=== PATIENT | female | born 1955 | race Caucasian/White ===

== ENCOUNTER 2017-06-29 11:40 | Day surgery (SDC) | payer BC ==
[2017-06-29 14:02] VITALS: TEMP 98.8
[2017-06-29] MEDS ORDERED: Sodium Chloride 0.9% 20 ML ONE (14:08)
[2017-06-29 16:48] VITALS: BP 125/61
== END 2017-06-29 16:49 | disposition home or self-care (01) ==
LOC: ONC/OP 11:40
PROVIDERS: ATTEND Internal Medicine Gastroenterology
PROC: 30233N1 Transfusion of Nonautologous Red Blood Cells into Peripheral Vein, Percutaneous Approach (ICD-10-PCS; principal; 2017-06-29)
DX: D50.0 Iron deficiency anemia secondary to blood loss (chronic) (principal); Z98.890 Other specified postprocedural states
CPT/HCPCS: 36415; 36430; 86850; 86900; 86901; A4216; P9016

== ENCOUNTER 2017-07-02 12:48 | Day surgery (SDC) | payer BC ==
[2017-06-29 17:02] VITALS: BMI 27.7
[2017-07-02 13:40] LABS: #Eosinphils 0.2 thou/uL (0.0-0.7); #Lymphocytes 1.4 thou/uL (1.20-3.40); #Monocytes 0.6 thou/uL (0.11-0.59); #Neutrophils 3.9 thou/uL (1.40-6.50); %Basophils 0.5 % (0.0-1.0); %Eosinophils 3.6 % (0.0-10.0); %Lymphocytes 23.1 % (21.0-51.0); %Neutrophils 63.8 % (42.0-75.0); Hemoglobin 7.9 g/dL (12.0-16.0); Mean Corpuscular HGB CONC 31.1 g/dL (32.0-36.0); Mean Corpuscular Hemoglobin 26.9 pg (27.0-31.0); Mean Corpuscular Volume 86.5 fl (81.0-99.0); Platelet Count 227 thou/uL (130-400); RBC Distribution Width 17.6 % (11.5-14.5); Red Blood Cell (RBC) Count 2.94 mill/uL (4.20-5.40); White Blood Cell (WBC) Count 6.1 thou/uL (4.8-10.8)
[2017-07-02] MEDS ORDERED: PROPOFOL 200 MG/20 ML VIAL ONE (16:53)
--- NOTE | 2017-07-03 13:51 | OP ---
DATE OF PROCEDURE: 07/02/2017 PROCEDURES: 1. Esophagogastroduodenoscopy. 2. Colonoscopy. SURGEON: Tano Hall M.D. PAIN MEDICATIONS: Given by Anesthesiology Department PREPROCEDURE DIAGNOSES: 1. Severe anemia (hemoglobin 6.8). 2. Blood in stool, Hemoccult positive. 3. History of esophageal varices. POSTPROCEDURE DIAGNOSES: 1. Grade 2 lower esophageal varices without stigmata of bleeding. 2. Mild portal gastropathy. 3. Normal colon exam. PROCEDURE IN DETAIL: A written consent was obtained prior to the procedure. After adequate sedation , the forward-viewing endoscope was advanced down the stomach under direct vision to the second porti on of duodenum. Both the second portion and the bulb appeared normal. Pulses patent. The gastric a ntrum, body, fundus, and cardia all appeared normal. Mild diffuse portal gastropathy changes were no sterling throughout the stomach lining. Retroflexion did not show any gastric varices. In the distal low er third esophagus, grade 1-2 esophageal varices were seen. There were no stigmata of bleeding. The mid and upper esophagus appeared normal. The patient was then repositioned for colon exam. The colonoscope was introduced to rectum and advan lefty to the various segments of the colon to the cecum with some difficulty. The quality of the bowel prep was good. The cecum, ascending colon, hepatic flexure, transverse colon, splenic flexure, desc ending colon, and rectosigmoid colon all appeared normal. The sigmoid colon appeared to be tortuous. Rectal vault appeared normal including retroflexion. ASSESSMENT: 1. Normal upper endoscopy except for mild portal gastropathy and grade 2 esophageal varices. 2. Normal colon exam. PLAN: 1. Resume iron supplement twice daily. 2. Followup EGD in 1 year. 3. We will monitor blood count.
== END 2017-07-02 15:52 | disposition home or self-care (01) ==
LOC: SDC 12:48
PROVIDERS: ATTEND Internal Medicine Gastroenterology
PROC: 0DJD8ZZ Inspection of Lower Intestinal Tract, Via Natural or Artificial Opening Endoscopic (ICD-10-PCS; principal; 2017-07-02)
PROC: 0DJ08ZZ Inspection of Upper Intestinal Tract, Via Natural or Artificial Opening Endoscopic (ICD-10-PCS; principal; 2017-07-02)
DX: K31.9 Disease of stomach and duodenum, unspecified; D50.9 Iron deficiency anemia, unspecified; Z79.84 Long term (current) use of oral hypoglycemic drugs; K74.60 Unspecified cirrhosis of liver; Z79.899 Other long term (current) drug therapy; Z79.82 Long term (current) use of aspirin; I85.10 Secondary esophageal varices without bleeding; R19.5 Other fecal abnormalities
CPT/HCPCS: 36415; 85025; J2704

== ENCOUNTER 2017-07-10 01:57 | Emergency (ER) | payer BC ==
[2017-07-10 02:33] LABS: #Eosinphils 0.1 thou/uL (0.0-0.7); #Lymphocytes 1.2 thou/uL (1.20-3.40); #Monocytes 0.4 thou/uL (0.11-0.59); #Neutrophils 2.8 thou/uL (1.40-6.50); %Basophils 0.9 % (0.0-1.0); %Eosinophils 3.1 % (0.0-10.0); %Lymphocytes 26.5 % (21.0-51.0); %Monocytes 8.4 % (0.0-10.0); %Neutrophils 61.2 % (42.0-75.0); Hemoglobin 6.1 g/dL (12.0-16.0); Mean Corpuscular Hemoglobin 27.6 pg (27.0-31.0); Mean Platelet Volume 7.2 fL (7.4-10.4); Platelet Count 177 thou/uL (130-400); RBC Distribution Width 17.7 % (11.5-14.5); White Blood Cell (WBC) Count 4.6 thou/uL (4.8-10.8)
[2017-07-10 02:53] LABS: ALT (SGPT) 18 U/L (8-55); AST (SGOT) 17 U/L (5-34); Albumin 3.8 g/dL (3.5-5.0); Alkaline Phosphatase 79 U/L (40-150); Anion Gap 10 mmol/L (10-20); BUN (Urea Nitrogen) 10 mg/dL (9.8-20.1); Bilirubin, Total 0.5 mg/dL (0.2-1.2); Calc. Creatinine Clearance 0 mL/min (70-130); Calcium 9.1 mg/dL (7.8-10.44); Carbon Dioxide 27 mmol/L (22-29); Chloride 103 mmol/L (98-107); Estimated GFR-MDRD 80; Globulin 2.6 g/dL (2.4-3.5); Glucose 232 mg/dL (70-105); Potassium 3.4 mmol/L (3.5-5.1); Protein, Total 6.4 g/dL (6.0-8.3); Sodium 137 mmol/L (136-145)
[2017-07-10 03:41] LABS: Iron 413 ug/dL (50-170); Iron Binding Capacity, Total 416 mcg/dL (265-497)
== END 2017-07-10 07:29 | disposition home or self-care (01) ==
LOC: ERS 01:57
DX: D64.9 Anemia, unspecified (principal); E11.9 Type 2 diabetes mellitus without complications; I10 Essential (primary) hypertension; E78.5 Hyperlipidemia, unspecified; Z79.899 Other long term (current) drug therapy; Z79.82 Long term (current) use of aspirin; Z79.84 Long term (current) use of oral hypoglycemic drugs
CPT/HCPCS: 36415; 36430; 80053; 82274; 82728; 83540; 83550; 85025; 86850; 86900; 86901; P9016

== ENCOUNTER 2017-09-07 08:53 | Outpatient (CLI) | payer BC | END 2017-09-07 08:54 | disposition home or self-care (01) | LOC: BICULT 08:53 | PROVIDERS: ATTEND Internal Medicine Gastroenterology | DX: K74.60 Unspecified cirrhosis of liver (principal); I85.00 Esophageal varices without bleeding; D50.9 Iron deficiency anemia, unspecified; R16.1 Splenomegaly, not elsewhere classified | CPT/HCPCS: 76705 ==

== ENCOUNTER 2018-03-21 17:36 | Day surgery (SDC) | payer BC ==
[2018-03-21 18:43] VITALS: BMI 27.6
[2018-03-22 01:08] VITALS: TEMP 98.3
[2018-03-22 02:50] VITALS: BP 134/70
== END 2018-03-22 04:15 | disposition home or self-care (01) ==
LOC: SDC/OP 17:36 → ONC 17:44 → SDC/OP 03-22 04:15
PROVIDERS: ATTEND Internal Medicine
PROC: 30233N1 Transfusion of Nonautologous Red Blood Cells into Peripheral Vein, Percutaneous Approach (ICD-10-PCS; principal; 2018-03-22)
DX: D64.9 Anemia, unspecified (principal); I10 Essential (primary) hypertension; E11.9 Type 2 diabetes mellitus without complications; K58.9 Irritable bowel syndrome, unspecified; Z79.899 Other long term (current) drug therapy
CPT/HCPCS: 36415; 36430; 86850; 86900; 86901; P9016

== ENCOUNTER 2018-05-29 08:45 | Outpatient (CLI) | payer BC ==
--- NOTE | 2018-05-29 10:23 | ULT ---
HEPATIC ULTRASOUND: History: Cirrhosis, fatty liver. Technique: Multiplanar grayscale and color doppler images were obtained in a right upper quadrant ult rasound. Spectral analysis of the doppler waveforms of the hepatic and splenic vasculature were perfo rmed. FINDINGS: The liver is normal in echogenicity without focal lesions or intrahepatic ductal dilatation. No signi ficant nodular contour of the liver is seen. The gallbladder is normal without stones, sludge, gallbl adder wall thickening or pericholecystic fluid. The common bile duct is normal measuring 3 mm. Normal direction of flow is seen in the hepatic and splenic vasculature which also have normal wavefo geovani. The spleen contains a few echogenic foci which may represent calcified granulomas. The spleen me asures 13.5 cm in length. Limited visualization of the pancreas is unremarkable. IMPRESSION: Unremarkable exam. POS: GIANA
== END 2018-05-29 08:46 | disposition home or self-care (01) ==
LOC: BICULT 08:45
PROVIDERS: ATTEND Internal Medicine Gastroenterology
DX: K74.60 Unspecified cirrhosis of liver (principal); K76.0 Fatty (change of) liver, not elsewhere classified
CPT/HCPCS: 76705

== ENCOUNTER 2019-08-01 09:59 | Outpatient (CLI) | payer BC ==
[2019-08-01 10:42] LABS: Estimated GFR-MDRD - POC Greater than 90
--- NOTE | 2019-08-01 11:57 | CT ---
EXAM: CT ABDOMEN AND PELVIS HISTORY: Lower abdominal pain. COMPARISON: None. Procedure: Multiple contiguous axial images were obtained and a CT of the abdomen and pelvis with IV contrast. C oronal reformats were performed. FINDINGS: Lower Chest: within normal limits. Vessels: Normal caliber aorta. There is no periaortic fat stranding. There is stranding of the centra l abdominal mesentery at the root of the celiac artery and superior mesenteric artery. Heart: Normal heart size. No pericardial fluid Abdomen: Portal vein:Patent Gallbladder: No calcified gallstones. Normal caliber wall. Liver: Mild nodularity of the hepatic margin. No enhancing masses in the liver. Pancreas: within normal limits. Spleen: Multiple calcified granulomas. Splenomegaly measuring 16.6 cm. There are prominent splenic va rices. Smaller gastric varices are also noted. Adrenals: within normal limits. Kidneys: Symmetric enhancement. No obstructive uropathy. Peritoneum: No ascites or free air, no fluid collection. Bowel: Gastric mucosa and small bowel loops have an overall normal caliber. There does appear to be m ucosal thickening involving proximal small bowel loops. Ileocecal junction has a normal appearance. Normal caliber appendix. Scattered fecal material in a nondistended, nondilated colon. Mesentery and Retroperitoneum: There are mildly enlarged periaortic and aortocaval lymph nodes. Repre sentative aortocaval lymph node measures 1.0 x 0.6 cm. There is stranding of the abdominal mesentery, predominantly at the root of the celiac artery and superior mesenteric artery. There is al so a small amount of stranding in the left and right paracolic gutter. Abdominal Wall: within normal limits. Vasculature: As stated above, there are splenic varices. There is also recanalization of the umbilica l vein. Pelvis: Reproductive Organs: Reproductive organs are unremarkable. Pelvis: No mass, lymphadenopathy, free air or free fluid. Bladder: within normal limits. Bones: within normal limits. IMPRESSION: 1. Mild cirrhotic changes of the liver. 2. Splenomegaly. 3. Portal venous hypertension with resultant splenic varices and recanalization of the umbilical vein . Early third spacing with stranding of the root of the abdominal mesentery, mesentery along the paracolic gutters and mild edematous changes of the bowel mucosa. Transcribed Date/Time: 08/01/2019 12:46 PM
== END 2019-08-01 10:00 | disposition home or self-care (01) ==
LOC: SCSCT 09:59
PROVIDERS: ATTEND Internal Medicine Gastroenterology
DX: I85.00 Esophageal varices without bleeding (principal); K74.69 Other cirrhosis of liver; R10.30 Lower abdominal pain, unspecified; R19.4 Change in bowel habit; R16.1 Splenomegaly, not elsewhere classified; K76.6 Portal hypertension; I86.8 Varicose veins of other specified sites
CPT/HCPCS: 74177; 82565

== ENCOUNTER 2020-04-23 09:30 | Observation (INO) | payer BC ==
[2020-04-23] MEDS ORDERED: Octreotide Acetate 100 MCG/ML VIAL ONE (10:04)
[2020-04-23 10:07] LABS: #Basophils 0.1 thou/uL (0.0-0.2); #Eosinphils 0.1 thou/uL (0.0-0.7); #Lymphocytes 0.9 thou/uL (1.20-3.40); #Monocytes 0.3 thou/uL (0.11-0.59); %Basophils 0.8 % (0.0-1.0); %Eosinophils 1.9 % (0.0-10.0); %Lymphocytes 13.9 % (21.0-51.0); %Monocytes 4.7 % (0.0-10.0); %Neutrophils 78.6 % (42.0-75.0); Hemoglobin 10.1 g/dL (12.0-16.0); Mean Corpuscular HGB CONC 33.4 g/dL (32.0-36.0); Mean Corpuscular Volume 83.7 fL (78.0-98.0); Mean Platelet Volume 8.1 fL (7.4-10.4); Platelet Count 172 thou/uL (130-400); RBC Distribution Width 13.1 % (11.5-14.5); Red Blood Cell (RBC) Count 3.62 mill/uL (4.20-5.40); White Blood Cell (WBC) Count 6.4 thou/uL (4.8-10.8)
[2020-04-23 10:30] LABS: ALT (SGPT) 25 U/L (8-55); AST (SGOT) 19 U/L (5-34); Albumin 3.8 g/dL (3.4-4.8); Alkaline Phosphatase 64 U/L (40-110); Anion Gap 15 mmol/L (10-20); BUN (Urea Nitrogen) 29 mg/dL (9.8-20.1); Bilirubin, Total 1.3 mg/dL (0.2-1.2); Calc. Creatinine Clearance 0 mL/min (70-130); Calcium 8.9 mg/dL (7.8-10.44); Carbon Dioxide 25 mmol/L (23-31); Chloride 104 mmol/L (98-107); Globulin 2.7 g/dL (2.4-3.5); Glucose 223 mg/dL (80-115); Potassium 4.6 mmol/L (3.5-5.1); Protein, Total 6.5 g/dL (5.8-8.1); Sodium 139 mmol/L (136-145)
[2020-04-23] MEDS ORDERED: Ondansetron PF 4 MG/2 ML Vial ONE (10:48)
[2020-04-23] MEDS ORDERED: Fentanyl 100 MCG/2 ML VIAL ONE (10:48)
--- NOTE | 2020-04-23 11:35 | CT ---
CT OF THE CHEST, ABDOMEN AND PELVIS WITH IV CONTRAST INDICATION: History of blood clot in stomach concern for active variceal bleeding COMPARISON: CT the abdomen and pelvis with contrast dated August 01, 2019 FINDINGS: CHEST: Lungs: No suspicious consolidation is evident. There is calcified granuloma in the right upper lobe. There are a few scattered nonsuspicious appearing sub-4 mm pulmonary nodules within both lungs. Pleural space: No effusion. Mediastinum: There are calcified lymph nodes within the subcarinal region of the mediastinum and in t he right hilar region. Axilla: No pathologically enlarged lymph nodes. ABDOMEN: Liver: There is a nodular contour to the liver consistent with patient's history of cirrhosis. There is scattered calcified granuloma. No focal hepatic lesion is evident. Gallbladder: Moderately distended Pancreas: Normal. Adrenal glands: Normal. Spleen: Spleen is enlarged with multiple calcified granuloma measuring 14.6 cm. View mild varicositie s are seen adjacent to the splenic hilum. Kidneys and ureters: Normal. No hydronephrosis. Vasculature: There are moderate vascular calcifications seen involving the visualized vasculature. Lymph nodes:No lymphadenopathy. Free fluid in abdomen:No free fluid is evident. PELVIS: Small and large bowel: There is a moderate amount retained stool within the colon. The small bowel is of normal caliber. The stomach is largely decompressed. No extensive paraesophageal varicosities are seen in the region of the distal esophagus. No large gastric varicosities are grossly evident. Appendix:Normal Bladder: Moderately distended Rectal and perirectal soft tissues:Normal. Reproductive structures: The uterus is not seen and presumably surgically absent. The right adnexa is seen and appears within normal limits by CT. The left adnexa is not demonstrated and presumed to be surgically absent. Free fluid in pelvis: No free fluid is evident. Lymphadenopathy pelvis: No lymphadenopathy is evident. Osseous structures: No acute osseous abnormality. No destructive osteolytic or osteoblastic lesion i s identified. There is thoracolumbar scoliosis. No acute fracture or subluxation demonstrated. No suspicious osteolytic or osteoblastic lesion is identified. Soft tissues:Normal. IMPRESSION: 1. Findings of cirrhosis with portal hypertension with mildly prominent splenic varicosities. No larg e paraesophageal or gastrohepatic varicosities are grossly evident. 2. Findings of prior granulomatous disease. 3. Other chronic findings as above.
[2020-04-23] MEDS ORDERED: Ondansetron PF 4 MG/2 ML Vial IVP PRN (13:03)
[2020-04-23] MEDS ORDERED: Ondansetron ODT 4 MG TAB PO PRN (13:03)
[2020-04-23] MEDS ORDERED: Dextrose 50% Abboject 50 ML SYRINGE SLOW IVP PRN (13:06)
[2020-04-23] MEDS ORDERED: Dextrose 5% in Water 1,000 ML IV PRN (13:06)
--- NOTE | 2020-04-23 13:10 | PDOC.HHP ---
Hospitalist RONALD Referred from GI History of Present Illness: Patient is a 64-year-old female with a history of chronic fatty liver disease which ultimately resulted in cirrhotic changes of the liver. About a year and a half ago the patient developed some early signs of varices. She was following up with Dr. Hall today for a surveillance endoscopy. On exam he found some esophageal varices. On further look he found a fair amount of blood in the stomach which was somewhat clotted. He was unable to find any specific lesions within the stomach. He was able to band the varices in the esophagus. In talking to the patient it sounds like she felt a little bit nauseated yesterday. She also felt somewhat weak. She denies any melena or hematochezia. She does have a history of iron deficiency anemia and states she was feeling somewhat like she did when she was anemic in the past. Currently denies any abdominal pain or nausea. Allergies/Adverse Reactions: Allergy/AdvReac Type Severity Reaction Status Date / Time No Known Allergies Allergy Verified 06/17/19 01:25 Home Medications: Medication Instructions Recorded Confirmed Type Aspirin [Aspirin EC] 1 tab PO DAILY 06/29/17 03/21/18 History Iron,Carbonyl/Ascorbic Acid 2 tab PO QAM 06/29/17 03/21/18 History [Vitron-C] Nadolol 1 tab PO QAM 06/29/17 03/21/18 History Pantoprazole Sodium [Protonix] 1 tab PO QAM 06/29/17 03/21/18 History Pravastatin Sodium 1 tab PO HS 06/29/17 03/21/18 History Valsartan/Hydrochlorothiazide 1 tab PO QAM 06/29/17 03/21/18 History [Valsartan-Hctz 160-25 mg Tab] glyBURIDE [Glyburide] 2 tab PO BID 06/29/17 03/21/18 History Comments: Patient also takes glyburide 5 mg p.o. daily Metformin ER 500 mg 2 p.o. twice daily Vitamin D3 5000 units daily Fish oil Multivitamin Glucosamine Vitamin E Past History: PMHx: Diabetes mellitus type 2, hypertension, hyperlipidemia, iron deficiency anemia, nonalcoholic steatohepatitis, cirrhosis PSHx: , hysterectomy with unilateral nephrectomy, back surgery FHx: Mother had hypertension, coronary disease, CHF. Father had diabetes mellitus late in life Social: Non-smoker, nondrinker, nondrug user. She is . Full code. is her surrogate. Hospitalist HPI ROS Constitutional: denies: fever, chills Respiratory: denies: cough, shortness of breath Cardiovascular: denies: chest pain, palpitations Gastrointestinal: reports: nausea. denies: vomiting, abdominal pain, diarrhea, constipation, melena, hematochezia Neurological: reports: weakness (Mild) All other systems reviewed; all pertinent +/- noted in HPI/Subj Hospitalist Exam General Appearance: NAD Neck: supple, symmetric, no JVD Heart: RRR, no gallops, no rubs, II/IV Respiratory: CTAB, no wheezes, no rales Gastrointestinal: soft, non-tender, non-distended, normal bowel sounds Extremities: no cyanosis, no clubbing, no edema Skin: normal turgor Neurological: no focal deficits Musculoskeletal: normal tone, normal strength, no muscle wasting Psychiatric: normal affect, normal behavior, A&O x 3 Hospitalist Results Result Diagrams: 04/23/20 09:50 04/23/20 09:50 Lab results: Laboratory Last Values WBC 6.4 thou/uL (4.8-10.8) 04/23/20 09:50 RBC 3.62 mill/uL (4.20-5.40) L 04/23/20 09:50 Hgb 10.1 g/dL (12.0-16.0) L 04/23/20 09:50 Hct 30.2 % (36.0-47.0) L 04/23/20 09:50 MCV 83.7 fL (78.0-98.0) 04/23/20 09:50 MCH 28.0 pg (27.0-31.0) 04/23/20 09:50 MCHC 33.4 g/dL (32.0-36.0) 04/23/20 09:50 RDW 13.1 % (11.5-14.5) 04/23/20 09:50 Plt Count 172 thou/uL (130-400) 04/23/20 09:50 MPV 8.1 fL (7.4-10.4) 04/23/20 09:50 Neutrophils % 78.6 % (42.0-75.0) H 04/23/20 09:50 Lymphocytes % 13.9 % (21.0-51.0) L 04/23/20 09:50 Monocytes % 4.7 % (0.0-10.0) 04/23/20 09:50 Eosinophils % 1.9 % (0.0-10.0) 04/23/20 09:50 Basophils % 0.8 % (0.0-1.0) 04/23/20 09:50 Neutrophils # 5.0 thou/uL (1.40-6.50) 04/23/20 09:50 Lymphocytes # 0.9 thou/uL (1.20-3.40) L 04/23/20 09:50 Monocytes # 0.3 thou/uL (0.11-0.59) 04/23/20 09:50 Eosinophils # 0.1 thou/uL (0.0-0.7) 04/23/20 09:50 Basophils # 0.1 thou/uL (0.0-0.2) 04/23/20 09:50 Sodium 139 mmol/L (136-145) 04/23/20 09:50 Potassium 4.6 mmol/L (3.5-5.1) 04/23/20 09:50 Chloride 104 mmol/L (98-107) 04/23/20 09:50 Carbon Dioxide 25 mmol/L (23-31) 04/23/20 09:50 Anion Gap 15 mmol/L (10-20) 04/23/20 09:50 BUN 29 mg/dL (9.8-20.1) H 04/23/20 09:50 Creatinine 0.64 mg/dL (0.6-1.1) 04/23/20 09:50 Estimated GFR (MDRD) Greater than 90 04/23/20 09:50 Glucose 223 mg/dL (80-115) H 04/23/20 09:50 Calcium 8.9 mg/dL (7.8-10.44) 04/23/20 09:50 Total Bilirubin 1.3 mg/dL (0.2-1.2) H 04/23/20 09:50 AST 19 U/L (5-34) 04/23/20 09:50 ALT 25 U/L (8-55) 04/23/20 09:50 Alkaline Phosphatase 64 U/L (40-110) 04/23/20 09:50 Serum Total Protein 6.5 g/dL (5.8-8.1) 04/23/20 09:50 Albumin 3.8 g/dL (3.4-4.8) 04/23/20 09:50 Globulin 2.7 g/dL (2.4-3.5) 04/23/20 09:50 Albumin/Globulin Ratio 1.4 g/dL (1.2-2.2) 04/23/20 09:50 Blood Type AB POSITIVE 04/23/20 10:09 Antibody Screen NEGATIVE 04/23/20 10:09 Crossmatch See Detail 04/23/20 10:09 CT scan - abdomen Status: image reviewed by me, report reviewed by me (Evidence of cirrhotic changes of the liver with no other acute findings) Hospitalist H&P A/P (1) GI bleed Code(s): K92.2 - GASTROINTESTINAL HEMORRHAGE, UNSPECIFIED Status: Acute (2) Esophageal varices Code(s): I85.00 - ESOPHAGEAL VARICES WITHOUT BLEEDING Status: Acute (3) Acute blood loss anemia Code(s): D62 - ACUTE POSTHEMORRHAGIC ANEMIA Status: Acute (4) Cirrhosis Code(s): K74.60 - UNSPECIFIED CIRRHOSIS OF LIVER Status: Acute (5) Fatty liver Code(s): K76.0 - FATTY (CHANGE OF) LIVER, NOT ELSEWHERE CLASSIFIED Status: Acute (6) Diabetes mellitus Code(s): E11.9 - TYPE 2 DIABETES MELLITUS WITHOUT COMPLICATIONS Status: Acute (7) Hyperlipidemia Code(s): E78.5 - HYPERLIPIDEMIA, UNSPECIFIED Status: Acute (8) Hypertension Code(s): I10 - ESSENTIAL (PRIMARY) HYPERTENSION Status: Acute (9) Iron deficiency anemia Code(s): D50.9 - IRON DEFICIENCY ANEMIA, UNSPECIFIED Status: Acute Plan: This patient is a 64-year-old female who presented on referral from the GI clinic. 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 She was noted to have varices developing about a year and a half ago. She was seen today for a maintenance endoscopy. She was noted to have blood in her stomach. There was no specific lesion accounting for this. She had varices in the esophagus that were banded. Patient has largely been asymptomatic otherwise. She had no melena or hematochezia. Only symptoms were mild nausea and mild fatigue. GI bleed: No specific source identified. In the stomach primarily. Had varices in the esophagus banded but there was no evidence of acute bleeding. Observation status with serial hemoglobin. Continue PPI. Octreotide drip. GI consult. Esophageal varices: As above close were banded today without evidence of complication. Acute blood loss anemia: Patient's hemoglobin 1 month ago was 11.9. We will continue to monitor serial hemoglobins. Patient was noted to be pancytopenic previously, this has generally improved. Cirrhosis: Secondary to nonalcoholic steatohepatitis. Diabetes mellitus: Patient is not taking much p.o. at the moment. We will hold her p.o. meds and continue with sliding scale insulin for now. If she does not need contrast study and is able to take p.o.'s adequately will need to resume her Metformin and glyburide. Continue with a diabetic diet and Accu-Cheks. Hypertension: Continue with her valsartan and HCTZ. Hyperlipidemia: Continue with her pravastatin or therapeutic substitution.
[2020-04-23 13:27] LABS: Hemoglobin 10.1 g/dL (12.0-16.0)
[2020-04-23 13:33] LABS: PTT 27.8 sec (22.9-36.1); Prothrombin Time 13.6 sec (12.0-14.7)
[2020-04-23] MEDS ORDERED: Iopamidol 370 76% 100 ML VIAL ONE (14:03)
[2020-04-23] MEDS: Sodium Chloride 0.9% 1,000 ML IV SCH (16:23)
[2020-04-23 16:48] VITALS: BMI 25.8
[2020-04-23] MEDS: cefTRIAXone\\ROCEPHIN 2 GM in Sodium Chloride 0.9% 100 ML IVPB SCH (18:35)
--- NOTE | 2020-04-23 20:02 | CON ---
DATE OF CONSULTATION: 04/23/2020 REASON FOR CONSULTATION: Cirrhosis of the liver, now status post band ligation x3 for bleeding esophageal varices, upper GI bleeding. CONSULTING PROVIDER: Jesús Meneses MD HISTORY OF PRESENT ILLNESS: The patient is a 64-year-old female with past medical history of diabetes, anemia, anxiety, hypertension, GERD, hyperlipidemia, and cirrhosis secondary to nonalcoholic fatty liver disease and complicated by esophageal varices status post band ligation. The patient states that over the last 2 days, she had been experiencing increased weakness and nausea without vomiting with unknown origin. She also experienced increased fatigue along with these other presenting symptoms with a presyncopal event earlier today. However, she subsequently underwent upper endoscopy earlier today at the [facility], during which she was noted to have a large amount of retained blood within the stomach as well as grade 2 esophageal varices with red samira sign, consistent with high-risk stigmata of bleeding. She subsequently underwent band ligation x3 and was subsequently transferred to the hospital for further monitoring and evaluation. She states that since being transferred to the hospital she does have a mild burning type sensation in her lower chest that was present this morning before the upper endoscopy, but otherwise is feeling well. She does also complain of mild dysphagia since the upper endoscopy with attempts to eat more liquid type foods "I have to allow more time to let them go down." Otherwise, she denies any vomiting, fevers, chills, hematemesis, melena, hematochezia, odynophagia, diarrhea, constipation, or recent weight loss. REVIEW OF SYSTEMS: A 10-category review of systems was obtained with all responses negative except for the pertinent positives as listed in HPI. PAST MEDICAL HISTORY: As per HPI. PAST SURGICAL HISTORY: 1. . 2. Hysterectomy. 3. Unilateral nephrectomy. 4. Back surgery. FAMILY HISTORY: Denies any GI malignancies. SOCIAL HISTORY: Denies any tobacco, alcohol, or illicit drug use. OUTPATIENT MEDICATIONS: Reviewed. ALLERGIES: NO KNOWN DRUG ALLERGIES. PHYSICAL EXAMINATION: VITAL SIGNS: Temperature 98.2, pulse 86, blood pressure 123/77, respiratory rate 16, and saturating 98% on room air. GENERAL: The patient was lying in bed, in no acute distress. Alert and oriented x4. HEENT: Normocephalic and atraumatic. Neck is supple. No JVD or scleral icterus noted. CARDIOVASCULAR: Regular rate and rhythm with no discernable murmurs, gallops, or rubs. RESPIRATORY: Clear to auscultation bilaterally with no discernable wheezes or rales. ABDOMEN: Normoactive bowel sounds. Soft and nondistended. Mild tenderness to palpation in the midepigastric region. Negative shifting dullness. EXTREMITIES: No cyanosis, clubbing, or edema. LABORATORY DATA: CBC with a white blood cell count of 6.4, hemoglobin 10.1, hematocrit 30.2, and platelets 172. INR 1.0. Chemistry with a sodium of 139, potassium 4.6, chloride 104, CO2 of 25, BUN 29, creatinine 0.64, and glucose 223. AST 19, ALT 25, alkaline phosphatase 64, and total bilirubin 1.3. IMAGING DATA: CT of the abdomen and pelvis was obtained on 04/23/2020, which showed morphology of the liver consistent with cirrhosis and portal hypertension with mildly prominent splenic varicosities; however, no large paraesophageal or gastrohepatic varicosities were grossly evident. She did have evidence of granulomatous disease within the spleen and liver. There was a moderate amount of retained stool within the colon, but otherwise normal. Lastly, she did have surgical change consistent with her hysterectomy with nonvisualization of the left adnexa, again presumed to be surgically absent. ASSESSMENT AND PLAN: The patient is a 64-year-old female with past medical history of diabetes, anemia, anxiety, hypertension, gastroesophageal reflux disease, hyperlipidemia, and cirrhosis secondary to nonalcoholic fatty liver disease and complicated by esophageal varices, now presenting with gastrointestinal bleeding, most likely from the esophageal varix source. 1. Upper GI bleeding/esophageal varices: The patient is presenting with a history of small esophageal varices in the past on prior upper endoscopy, for which the patient underwent a repeat upper endoscopy today for further surveillance. However, upon entering into the stomach, it was noted that she had a significant amount of retained blood in addition to a larger blood clot that was obscuring visualization of the gastric cardia and fundus; however, upon withdrawing the scope into the distal esophagus, she did have larger esophageal varices with red samira sign, consistent with high-risk stigmata of possible bleeding. She subsequently underwent band ligation x3 with good hemostasis achieved and ultimately transferred to the hospital for further management. At this time, the more likely explanation for her gastrointestinal bleeding would be the variceal bleeding that has now been subsequently treated with band ligation. However, with nonvisualization of the proximal stomach, an underlying abnormality could be potentially contributing to her gastrointestinal bleeding. Recommendations: a. Would start the patient on an octreotide drip and continue for the next 48 to 72 hours. b. Start the patient on PPI 40 mg IV b.i.d. in addition to ceftriaxone 2 g daily for the GI bleeding and infectious prophylaxis for GI bleeding in a patient with cirrhosis. c. Would continue to trend her hemoglobin and hematocrit and transfuse as necessary to maintain the hemoglobin and hematocrit of 7/21. d. Continue to monitor clinically for signs of active GI bleeding. e. Would start the patient on a clear liquid diet today, especially in light of her band ligation performed today with potentially advancing her diet to a soft diet tomorrow. f. If the patient has a decrease in her hemoglobin and hematocrit during this admission, she will likely need a repeat upper endoscopy for evaluation of the stomach that was not seen on endoscopy today. 2. Cirrhosis: The patient is presenting with a prior history of cirrhosis with prior workup in the past consistent with an etiology being nonalcoholic fatty liver disease, currently presenting with decompensated disease (in light of her esophageal varices) with a MELD score of 8 and Child-Hoang classification A. CT scan obtained earlier today did not show any evidence of hepatoma, which may be contributing to worsening liver disease. At this time, her liver disease seems fairly well controlled. Recommendations: a. Would avoid any potentially hepatotoxic medications in light of the patient's diagnosis of cirrhosis. b. Would continue to trend LFTs and INR daily for signs of hepatic dysfunction. c. Would continue to monitor the patient for signs of hepatic encephalopathy, which could be a harbinger of worsening liver disease. We will continue to follow. Please call with any questions. Job ID: [id number]
[2020-04-23] MEDS ORDERED: Atorvastatin Calcium 10 MG TAB PO SCH (21:00)
[2020-04-23 21:41] LABS: Hemoglobin 8.7 g/dL (12.0-16.0)
[2020-04-23] MEDS: Pantoprazole 40 MG VIAL IVP SCH (21:57)
[2020-04-23] MEDS ORDERED: Simvastatin 20 MG TAB PO SCH (22:45)
[2020-04-23] MEDS: Octreotide Acetate 1,250 MCG in Sodium Chloride 0.9% 250 ML 250 ML IVPB SCH (23:55)
[2020-04-24 01:41] LABS: Hemoglobin 8.5 g/dL (12.0-16.0)
[2020-04-24] MEDS: Sodium Chloride 0.9% 1,000 ML IV SCH ×4 (02:25→17:41)
[2020-04-24 02:37] LABS: SARS-CoV-2 PCR by NAA Not Detected (NotDetected)
[2020-04-24] MEDS ORDERED: Chloraseptic Spray 180 ml Bottle PO PRN (05:34)
[2020-04-24] MEDS ORDERED: Cepastat Lozenges 1 LOZ PO PRN (05:34)
[2020-04-24 06:29] LABS: Anion Gap 12 mmol/L (10-20); BUN (Urea Nitrogen) 22 mg/dL (9.8-20.1); Calc. Creatinine Clearance 106 mL/min (70-130); Calcium 7.9 mg/dL (7.8-10.44); Carbon Dioxide 27 mmol/L (23-31); Chloride 105 mmol/L (98-107); Glucose 209 mg/dL (80-115); Potassium 3.8 mmol/L (3.5-5.1); Sodium 140 mmol/L (136-145)
[2020-04-24] MEDS: Hydrochlorothiazide 25 MG TAB PO SCH (08:44)
[2020-04-24] MEDS: Pantoprazole 40 MG VIAL IVP SCH ×2 (08:44→20:48)
[2020-04-24] MEDS: Nadolol 40 MG TAB PO SCH (08:44)
[2020-04-24] MEDS: Valsartan 80 MG TAB PO SCH (08:55)
[2020-04-24] MEDS ORDERED: Acetaminophen 500 MG TAB PO PRN (12:11)
[2020-04-24] MEDS: traMADol HCl 50 MG TAB PO PRN (13:34)
[2020-04-24] MEDS: HumaLOG 300 UNITS/3 ML VIAL SC PRN ×3 (13:35→22:13)
--- NOTE | 2020-04-24 14:31 | PDOC.HOSPP ---
- Subjective Subjective: Patient was seen examined at bedside. Patient complained of some throat discomfort, she attributed to the banding that she had. Her hemoglobin appears to be stable. No evidence of active bleeding. - Objective Vital Signs & Weight: Vital Signs (12 hours) Temp Pulse Resp BP BP Pulse Ox 04/24/20 11:56 97.7 F 74 16 123/76 98 04/24/20 08:45 96 04/24/20 07:34 98.2 F 74 15 112/73 96 04/24/20 04:00 98.0 F 77 18 116/73 98 Weight Weight 165 lb I&O: 04/23/20 04/24/20 04/25/20 06:59 06:59 06:59 Intake Total 1360 1 Balance 1360 1 Result Diagrams: 04/24/20 01:16 04/24/20 05:35 Additional Labs: Accuchecks 04/24/20 04/24/20 04/23/20 12:13 04:36 20:43 POC Glucose 244 H 174 H 221 H 04/23/20 17:01 POC Glucose 141 H Hospitalist ROS - Medication Medications: Active Medications Generic Name Dose Route Start Last Admin Trade Name Freq PRN Reason Stop Dose Admin Hydrochlorothiazide 25 mg 04/24/20 09:00 04/24/20 08:44 Hydrochlorothiazide 25 Mg Tab PO Not Given DAILY YUMIKO Sodium Chloride 1,000 mls @ 75 mls/hr 04/23/20 13:15 04/24/20 04:39 Normal Saline 0.9% IV 1,000 mls .[id number] YUMIKO Administration Octreotide Acetate 1,250 mcg/ 251.25 mls @ 20.1 mls/hr 04/23/20 13:15 04/23/20 23:55 Sodium Chloride IVPB 251.25 mls INF YUMIKO Administration 100 MCG/HR Ceftriaxone Sodium 2 gm/ 100 mls @ 200 mls/hr 04/23/20 18:00 04/23/20 18:35 Sodium Chloride IVPB 100 mls Q24HR YUMIKO Administration Insulin Human Lispro 0 units 04/23/20 13:06 04/24/20 13:35 Humalog 300 Units/3 Ml Vial SC 3 unit .MILD SLIDING SCALE PRN Administration Mild Correctional Scale Nadolol 40 mg 04/24/20 09:00 04/24/20 08:44 Nadolol 40 Mg Tab PO 40 mg DAILY YUMIKO Administration Pantoprazole Sodium 40 mg 04/23/20 21:00 04/24/20 08:44 Pantoprazole 40 Mg Vial IVP 40 mg Q12HR YUMIKO Administration Tramadol HCl 50 mg 04/24/20 12:11 04/24/20 13:34 Tramadol Hcl 50 Mg Tab PO 50 mg Q6H PRN Administration Mild Pain (1-3) Valsartan 160 mg 04/24/20 09:00 04/24/20 08:55 Valsartan 80 Mg Tab PO Not Given DAILY [facility] Hospitalist Exam Vitals: Vital Signs (12 hours) Temp Pulse Resp BP BP Pulse Ox 04/24/20 11:56 97.7 F 74 16 123/76 98 04/24/20 08:45 96 04/24/20 07:34 98.2 F 74 15 112/73 96 04/24/20 04:00 98.0 F 77 18 116/73 98 Weight Weight 165 lb General Appearance: NAD Eye: PERRL ENT: normocephalic atraumatic Neck: supple Heart: RRR, diminshed peripheral pulses Respiratory: CTAB Gastrointestinal: soft, non-tender Extremities: no cyanosis Skin: normal turgor Neurological: cranial nerve grossly intact, normal sensation to touch Musculoskeletal: normal tone, normal strength Hosp A/P - Plan (1) GI bleed Code(s): K92.2 - GASTROINTESTINAL HEMORRHAGE, UNSPECIFIED Status: Acute (2) Esophageal varices Code(s): I85.00 - ESOPHAGEAL VARICES WITHOUT BLEEDING Status: Acute (3) Acute blood loss anemia Code(s): D62 - ACUTE POSTHEMORRHAGIC ANEMIA Status: Acute (4) Cirrhosis Code(s): K74.60 - UNSPECIFIED CIRRHOSIS OF LIVER Status: Acute (5) Fatty liver Code(s): K76.0 - FATTY (CHANGE OF) LIVER, NOT ELSEWHERE CLASSIFIED Status: Acute (6) Diabetes mellitus Code(s): E11.9 - TYPE 2 DIABETES MELLITUS WITHOUT COMPLICATIONS Status: Acute (7) Hyperlipidemia Code(s): E78.5 - HYPERLIPIDEMIA, UNSPECIFIED Status: Acute (8) Hypertension Code(s): I10 - ESSENTIAL (PRIMARY) HYPERTENSION Status: Acute (9) Iron deficiency anemia Code(s): D50.9 - IRON DEFICIENCY ANEMIA, UNSPECIFIED Status: Acute Plan: This patient is a 64-year-old female who presented on referral from the GI clinic. 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 She was noted to have varices developing about a year and a half ago. She was seen today for a maintenance endoscopy. She was noted to have blood in her stomach. There was no specific lesion accounting for this. She had varices in the esophagus that were banded. Patient has largely been asymptomatic otherwise. She had no melena or hematochezia. Only symptoms were mild nausea and mild fatigue. GI bleed: d/t esophageal varices, s/p banding x 3 cont PPI, Sandostatin gtt for 48-72h per GI follow H&H. Diet advanced per GI Esophageal varices: As above close were banded today without evidence of complication. Acute blood loss anemia: Hb trending down slightly, low threshold for transfusion at this time. Follow HH Cirrhosis: Secondary to nonalcoholic steatohepatitis. Diabetes mellitus: Patient is not taking much p.o. at the moment. We will hold her p.o. meds and continue with sliding scale insulin for now. If she does not need contrast study and is able to take p.o.'s adequately will need to resume her Metformin and glyburide. Continue with a diabetic diet and Accu-Cheks. Hypertension: Continue with her valsartan and HCTZ. Hyperlipidemia: Continue with her pravastatin or therapeutic substitution.
--- NOTE | 2020-04-24 14:36 | PRG ---
DATE OF SERVICE: 04/24/2020 REASON FOR CONSULTATION: Cirrhosis of the liver, now status post band ligation x3 for bleeding esophageal varices, anemia. SUBJECTIVE: There were no acute events or problems overnight, although the patient did have two bowel movements within the last 12 hours, both of which were darker in coloration, but not black in coloration. She states that her nausea and gastric discomfort that she experienced yesterday morning has completely resolved, although she does have some mild headache on examination today. Otherwise, she denies any nausea, vomiting, fevers, chills, hematemesis, melena, hematochezia, dysphagia, or odynophagia. OBJECTIVE: VITAL SIGNS: Temperature 97.7, pulse 74, blood pressure 123/76, respiratory rate 16, saturating 98% on room air. GENERAL: The patient was sitting in a chair at bedside, in no acute distress. Alert and oriented x4. CARDIOVASCULAR: Regular rate and rhythm. RESPIRATORY: Clear to auscultation bilaterally. ABDOMEN: Normoactive bowel sounds. Soft, nontender, nondistended. EXTREMITIES: No cyanosis, clubbing, or edema. LABORATORY DATA: Hemoglobin of 8.5. Chemistry with a sodium of 140, potassium 3.8, chloride 105, CO2 of 27, BUN 22, creatinine 0.65, glucose 209. IMAGING DATA: No current GI imaging is available for review. ASSESSMENT AND PLAN: The patient is a 64-year-old female with past medical history of diabetes, anemia, anxiety, hypertension, GERD, hyperlipidemia, and cirrhosis secondary to nonalcoholic fatty liver disease and complicated by esophageal varices, now presenting with GI bleeding most likely from an esophageal varix source. Upper GI bleeding/esophageal varices. The patient underwent upper endoscopy on April 23, 2020, which showed a significant amount of blood within the stomach with nonvisualization of the proximal stomach. However, she did have large esophageal varices in the distal esophagus with red samira sign concerning for the etiology of her bleeding. She subsequently underwent band ligation x3 with good hemostasis achieved, but ultimately transferred to the hospital for further management including octreotide infusion and antibiotics in a cirrhotic patient with bleeding. Currently doing well with no overt evidence of GI bleeding. She did have a mild decrease in her H and H when compared to yesterday, but has been receiving IV fluids as part of management of her bleeding varices and her body may still be equilibrating to the new total body blood volume. RECOMMENDATIONS: 1. Would continue to trend her H and H and transfuse as necessary to maintain an H and H of 7/. 2. Continue to monitor clinically for signs of active GI bleeding. 3. We will continue the patient on an octreotide drip. 4. Total duration of therapy of 48 to 72 hours. 5. Continue patient on pantoprazole 40 mg IV b.i.d. 6. Continue ceftriaxone 2 g daily. 7. Advance diet as tolerated to a full liquid diet. 8. If the patient continues to have a significant decrease in her H and H, I would recommend a repeat upper endoscopy for evaluation of the proximal stomach not visualized during the upper endoscopy on the . 9. Cirrhosis. The patient is presenting with a prior history of cirrhosis with prior workup in the past, consistent with nonalcoholic fatty liver disease as the likely etiology, now presenting with decompensated disease with the presence of esophageal varices with a MELD score of 8 and Child-Hoang classification A. At this time, her liver disease seems to be fairly well controlled with no evidence of hepatoma on recent imaging. RECOMMENDATIONS: 1. Would avoid any potentially hepatotoxic medications during this hospitalization. 2. Would trend LFTs and INR daily for signs of hepatic dysfunction. 3. Continue to monitor patient's mental status for signs of hepatic encephalopathy, which could be a harbinger of worsening liver disease. 4. We will continue to follow. Please call with any questions. Job ID: [id number]
[2020-04-24] MEDS: cefTRIAXone\\ROCEPHIN 2 GM in Sodium Chloride 0.9% 100 ML IVPB SCH (17:36)
[2020-04-24] MEDS: Simvastatin 20 MG TAB PO SCH (20:48)
[2020-04-24] MEDS: Octreotide Acetate 1,250 MCG in Sodium Chloride 0.9% 250 ML 250 ML IVPB SCH (23:22)
[2020-04-25] MEDS: Sodium Chloride 0.9% 1,000 ML IV SCH ×2 (06:14→20:07)
[2020-04-25] MEDS: HumaLOG 300 UNITS/3 ML VIAL SC PRN ×3 (06:19→17:24)
[2020-04-25] MEDS: traMADol HCl 50 MG TAB PO PRN (06:22)
[2020-04-25 08:08] LABS: Hemoglobin 7.7 g/dL (12.0-16.0); Mean Corpuscular HGB CONC 34.2 g/dL (32.0-36.0); Mean Corpuscular Hemoglobin 29.2 pg (27.0-31.0); Mean Corpuscular Volume 85.3 fL (78.0-98.0); Mean Platelet Volume 7.3 fL (7.4-10.4); Platelet Count 109 thou/uL (130-400); RBC Distribution Width 13.6 % (11.5-14.5); Red Blood Cell (RBC) Count 2.63 mill/uL (4.20-5.40); White Blood Cell (WBC) Count 3.7 thou/uL (4.8-10.8)
[2020-04-25 08:26] LABS: Anion Gap 9 mmol/L (10-20); BUN (Urea Nitrogen) 12 mg/dL (9.8-20.1); Calc. Creatinine Clearance 101 mL/min (70-130); Calcium 7.9 mg/dL (7.8-10.44); Carbon Dioxide 26 mmol/L (23-31); Chloride 110 mmol/L (98-107); Glucose 212 mg/dL (80-115); Potassium 3.6 mmol/L (3.5-5.1); Sodium 141 mmol/L (136-145)
[2020-04-25] MEDS: Valsartan 80 MG TAB PO SCH (09:01)
[2020-04-25] MEDS: Nadolol 40 MG TAB PO SCH (09:01)
[2020-04-25] MEDS: Pantoprazole 40 MG VIAL IVP SCH ×2 (09:01→20:10)
[2020-04-25] MEDS: Hydrochlorothiazide 25 MG TAB PO SCH (09:01)
--- NOTE | 2020-04-25 11:13 | PDOC.HOSPP ---
- Subjective Subjective: Hb trending down slightly 7.7, no evidence of bleeding noted. feeling fine. d/w GI will complete 72 hr of sandostatin gtt rpt H&H today to make sure accuracy. Home tomorrow - Objective Vital Signs & Weight: Vital Signs (12 hours) Temp Pulse Resp BP BP Pulse Ox 04/25/20 08:00 97.5 F L 69 16 114/74 99 04/25/20 04:00 97.9 F 77 20 103/63 96 04/25/20 00:00 97.8 F 78 20 99/66 98 Weight Weight 165 lb I&O: 04/24/20 04/25/20 04/26/20 06:59 06:59 06:59 Intake Total 1360 2211 Balance 1360 2211 Result Diagrams: 04/25/20 07:24 04/25/20 07:24 Additional Labs: Accuchecks 04/25/20 04/24/20 04/24/20 04:51 22:06 15:42 POC Glucose 154 H 248 H 221 H 04/24/20 12:13 POC Glucose 244 H Radiology Reviewed by me: Yes EKG Reviewed by me: Yes Hospitalist ROS - Medication Medications: Active Medications Generic Name Dose Route Start Last Admin Trade Name Freq PRN Reason Stop Dose Admin Hydrochlorothiazide 25 mg 04/24/20 09:00 04/25/20 09:01 Hydrochlorothiazide 25 Mg Tab PO 25 mg DAILY YUMIKO Administration Sodium Chloride 1,000 mls @ 75 mls/hr 04/23/20 13:15 04/25/20 06:14 Normal Saline 0.9% IV 1,000 mls .[id number] YUMIKO Administration Octreotide Acetate 1,250 mcg/ 251.25 mls @ 20.1 mls/hr 04/23/20 13:15 04/24 23:22 Sodium Chloride IVPB 251.25 mls INF YUMIKO Administration 100 MCG/HR Ceftriaxone Sodium 2 gm/ 100 mls @ 200 mls/hr 04/23/20 18:00 04/24/20 17:36 Sodium Chloride IVPB 100 mls Q24HR YUMIKO Administration Insulin Human Lispro 0 units 04/23/20 13:06 04/25/20 06:19 Humalog 300 Units/3 Ml Vial SC 2 unit .MILD SLIDING SCALE PRN Administration Mild Correctional Scale Nadolol 40 mg 04/24/20 09:00 04/25/20 09:01 Nadolol 40 Mg Tab PO 40 mg DAILY YUMIKO Administration Pantoprazole Sodium 40 mg 04/23/20 21:00 04/25/20 09:01 Pantoprazole 40 Mg Vial IVP 40 mg Q12HR YUMIKO Administration Simvastatin 20 mg 04/24/20 21:00 04/24/20 20:48 Simvastatin 20 Mg Tab PO 20 mg HS YUMIKO Administration Tramadol HCl 50 mg 04/24/20 12:11 04/25/20 06:22 Tramadol Hcl 50 Mg Tab PO 50 mg Q6H PRN Administration Mild Pain (1-3) Valsartan 160 mg 04/24/20 09:00 04/25/20 09:01 Valsartan 80 Mg Tab PO 160 mg DAILY YUMIKO Administration Hospitalist Exam Vitals: Vital Signs (12 hours) Temp Pulse Resp BP BP Pulse Ox 04/25/20 08:00 97.5 F L 69 16 114/74 99 04/25/20 04:00 97.9 F 77 20 103/63 96 04/25/20 00:00 97.8 F 78 20 99/66 98 Weight Weight 165 lb General Appearance: NAD Eye: PERRL ENT: normocephalic atraumatic Neck: supple Heart: RRR Respiratory: CTAB Gastrointestinal: soft Extremities: no cyanosis Skin: normal turgor Neurological: cranial nerve grossly intact Musculoskeletal: normal tone Psychiatric: normal affect, normal behavior, A&O x 3 Hosp A/P - Plan (1) GI bleed Code(s): K92.2 - GASTROINTESTINAL HEMORRHAGE, UNSPECIFIED Status: Acute (2) Esophageal varices Code(s): I85.00 - ESOPHAGEAL VARICES WITHOUT BLEEDING Status: Acute (3) Acute blood loss anemia Code(s): D62 - ACUTE POSTHEMORRHAGIC ANEMIA Status: Acute (4) Cirrhosis Code(s): K74.60 - UNSPECIFIED CIRRHOSIS OF LIVER Status: Acute (5) Fatty liver Code(s): K76.0 - FATTY (CHANGE OF) LIVER, NOT ELSEWHERE CLASSIFIED Status: Acute (6) Diabetes mellitus Code(s): E11.9 - TYPE 2 DIABETES MELLITUS WITHOUT COMPLICATIONS Status: Acute (7) Hyperlipidemia Code(s): E78.5 - HYPERLIPIDEMIA, UNSPECIFIED Status: Acute (8) Hypertension Code(s): I10 - ESSENTIAL (PRIMARY) HYPERTENSION Status: Acute (9) Iron deficiency anemia Code(s): D50.9 - IRON DEFICIENCY ANEMIA, UNSPECIFIED Status: Acute Plan: This patient is a 64-year-old female who presented on referral from the GI clinic. 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 She was noted to have varices developing about a year and a half ago. She was seen today for a maintenance endoscopy. She was noted to have blood in her stomach. There was no specific lesion accounting for this. She had varices in the esophagus that were banded. Patient has largely been asymptomatic otherwise. She had no melena or hematochezia. Only symptoms were mild nausea and mild fatigue. GI bleed: d/t esophageal varices, s/p banding x 3 cont PPI, and sandostatin gtt to complete 72 hr rpt H&H, home in AM if stable. appreciate GI input Esophageal varices: As above close were banded today without evidence of complication. Acute blood loss anemia: Hb trending down slightly, low threshold for transfusion at this time. Follow HH Cirrhosis: Secondary to nonalcoholic steatohepatitis. Diabetes mellitus: Patient is not taking much p.o. at the moment. We will hold her p.o. meds and continue with sliding scale insulin for now. If she does not need contrast study and is able to take p.o.'s adequately will need to resume her Metformin and glyburide. Continue with a diabetic diet and Accu-Cheks. Hypertension: Continue with her valsartan and HCTZ. Hyperlipidemia: Continue with her pravastatin or therapeutic substitution.
[2020-04-25 12:09] LABS: Hemoglobin 7.6 g/dL (12.0-16.0)
[2020-04-25] MEDS: Octreotide Acetate 1,250 MCG in Sodium Chloride 0.9% 250 ML 250 ML IVPB SCH (14:04)
--- NOTE | 2020-04-25 15:10 | PRG ---
DATE OF SERVICE: 04/25/2020 REASON FOR CONSULTATION: Cirrhosis of the liver, now status post band ligation x3 for bleeding esophageal varices, anemia. SUBJECTIVE: She did not have any acute events or problems overnight. Today, she states that she is feeling very good and has been able to walk around both her room without difficulty. She has not had any episodes of GI bleeding since admission and currently denies any nausea, vomiting, fevers, chills, hematemesis, melena, or hematochezia. OBJECTIVE: VITAL SIGNS: Temperature 97.8, pulse 73, blood pressure 109/68, respiratory rate 18, saturating 99% on room air. GENERAL: The patient was sitting in a chair at bedside, in no acute distress. Alert and oriented x4. CARDIOVASCULAR: Regular rate and rhythm. RESPIRATORY: Clear to auscultation bilaterally. ABDOMEN: Normoactive bowel sounds. Soft, nontender, nondistended. EXTREMITIES: No cyanosis, clubbing, or edema. LABORATORY DATA: CBC with a white blood cell count of 3.7, hemoglobin 7.7, hematocrit 22.4, platelets 109. Chemistry with a sodium of 141, potassium 3.6, chloride 110, CO2 of 26, BUN 12, creatinine 0.68, glucose 212. IMAGING DATA: No current GI imaging is available for review. ASSESSMENT AND PLAN: The patient is a 64-year-old female with past medical history of diabetes, anemia, anxiety, hypertension, gastroesophageal reflux disease, hyperlipidemia, and cirrhosis secondary to nonalcoholic fatty liver disease, now complicated by esophageal varices and probable bleeding from this varix source. Upper gastrointestinal bleeding/esophageal varices: 1. The patient underwent upper endoscopy on April 23, 2020, which showed a significant amount of blood within the stomach and nonvisualization of the proximal stomach. However, she did have large esophageal varices in the distal esophagus with high-risk stigmata of bleeding, for which, she ultimately underwent band ligation x3. Since that time, she has not had any significant derangements in her hemodynamic status nor has she had any obvious source of gastrointestinal bleeding, although, her H and H has been mildly downtrending during the course of this admission. She is currently doing well with an octreotide infusion and antibiotics. At this time, the downtrending in her H and H seems more hemodilutional and related to the infusion of octreotide and IV fluid, although, continued bleeding cannot necessarily be ruled out at this time. RECOMMENDATIONS: 1. Would continue to trend her H and H and transfuse as necessary to maintain an H and H of 10/13. 2. Continue to monitor clinically for signs of active GI bleeding. 3. Continue the patient on the octreotide drip for total duration of 72 hours. 4. Continue the patient on pantoprazole 40 mg IV b.i.d. 5. Continue ceftriaxone 2 g daily. 6. Advance diet to a higher protein low-sodium diet. 7. If the patient continues to have decrease in her H and H, I would then consider repeat upper endoscopy for the area of the stomach not visualized during the recent esophagogastroduodenoscopy on the . We will continue to follow. Please call with any questions. Job ID: [id number]
[2020-04-25] MEDS: cefTRIAXone\\ROCEPHIN 2 GM in Sodium Chloride 0.9% 100 ML IVPB SCH (17:22)
[2020-04-25] MEDS: Simvastatin 20 MG TAB PO SCH (20:10)
[2020-04-25] MEDS ORDERED: HumaLOG 300 UNITS/3 ML VIAL SC PRN (20:39)
[2020-04-26] MEDS: Octreotide Acetate 1,250 MCG in Sodium Chloride 0.9% 250 ML 250 ML IVPB SCH (02:48)
[2020-04-26] MEDS: HumaLOG 300 UNITS/3 ML VIAL SC PRN (06:04)
[2020-04-26 07:13] LABS: Hemoglobin 7.3 g/dL (12.0-16.0); Mean Corpuscular HGB CONC 34.5 g/dL (32.0-36.0); Mean Corpuscular Hemoglobin 28.9 pg (27.0-31.0); Mean Corpuscular Volume 83.7 fL (78.0-98.0); Mean Platelet Volume 7.4 fL (7.4-10.4); Platelet Count 108 thou/uL (130-400); RBC Distribution Width 13.7 % (11.5-14.5); Red Blood Cell (RBC) Count 2.52 mill/uL (4.20-5.40); White Blood Cell (WBC) Count 3.1 thou/uL (4.8-10.8)
[2020-04-26 07:22] VITALS: BP 123/75; TEMP 97.7
[2020-04-26] MEDS: Sodium Chloride 0.9% 1,000 ML IV SCH (09:02)
[2020-04-26] MEDS: Hydrochlorothiazide 25 MG TAB PO SCH (09:04)
[2020-04-26] MEDS: Valsartan 80 MG TAB PO SCH (09:05)
[2020-04-26] MEDS: Nadolol 40 MG TAB PO SCH (09:05)
[2020-04-26] MEDS: Pantoprazole 40 MG VIAL IVP SCH (09:06)
--- NOTE | 2020-04-26 09:55 | PDOC.DS.DS ---
Provider Date of Admission: 04/23/20 13:03 Date of Discharge: 04/26/20 Admitting Provider: Jesús Meneses MD Consultations: Gastroentrology Primary Care Physician: Fabian Stephen MD Course Hospital Course: The patient is a pleasant 64 years old female who has significant past medical history of liver cirrhosis, who underwent surveillance endoscopy on April 23, 2020, so significant amounts of blood within the stomach but nonvisualization of the proximal stomach. She underwent ligation x3 for bleeding esophageal varices. She was subsequently sent to the hospital for admission. Patient was started on empiric antibiotic for SBP phylaxis, octreotide, PPI. She initially had significant drop in her H&H, however she has been leveled off for the last 24 hours. No evidence of active bleeding. She completed 72 hours of octreotide. At this time, patient patient stable to discharge home. Patient to follow-up with PCP, and GI in the clinic next week for further management, and repeat CBC to make sure hemoglobin stable. Patient was advised to return to ED if her symptom recurs or worsen. Resuscitation Status: 04/23/20 13:03 Resuscitation Status Routine Resuscitation Status: FULL: Full Resuscitation Lab Results: 04/26/20 06:41 04/25/20 07:24 Abnormal Lab Results - Last 48 hrs 04/25/20 07:24: Chloride 110 H, Anion Gap 9 L 04/25/20 07:24: WBC 3.7 L, RBC 2.63 L, Hgb 7.7 L, Hct 22.4 L, Plt Count 109 L, MPV 7.3 L 04/25/20 11:55: Hgb 7.6 L, Hct 22.4 L 04/26/20 06:41: WBC 3.1 L, RBC 2.52 L, Hgb 7.3 L, Hct 21.1 L, Plt Count 108 L Vitals: Vital Signs (12 hours) Temp Pulse Resp BP BP Pulse Ox 04/26/20 07:20 97.7 F 71 18 123/75 100 04/26/20 05:00 98.2 F 78 16 104/67 96 04/26/20 00:45 110/66 04/26/20 00:00 98.2 F 77 16 103/66 96 Weight Weight 165 lb Physical Exam: The patient was seen and examined on the day of discharge. General Appearance: NAD Eye: PERRL ENT: normocephalic atraumatic Neck: supple Respiratory: CTAB Cardiovascular: RRR Gastrointestinal: soft Extremities: no cyanosis Skin: normal turgor Neurological: cranial nerve grossly intact Musculoskeletal: normal tone Problem (1) GI bleed Code(s): K92.2 - GASTROINTESTINAL HEMORRHAGE, UNSPECIFIED Status: Acute (2) Esophageal varices Code(s): I85.00 - ESOPHAGEAL VARICES WITHOUT BLEEDING Status: Acute (3) Acute blood loss anemia Code(s): D62 - ACUTE POSTHEMORRHAGIC ANEMIA Status: Acute (4) Cirrhosis Code(s): K74.60 - UNSPECIFIED CIRRHOSIS OF LIVER Status: Acute (5) Diabetes mellitus Code(s): E11.9 - TYPE 2 DIABETES MELLITUS WITHOUT COMPLICATIONS Status: Acute (6) Fatty liver Code(s): K76.0 - FATTY (CHANGE OF) LIVER, NOT ELSEWHERE CLASSIFIED Status: Acute (7) Hyperlipidemia Code(s): E78.5 - HYPERLIPIDEMIA, UNSPECIFIED Status: Acute (8) Hypertension Code(s): I10 - ESSENTIAL (PRIMARY) HYPERTENSION Status: Acute Time Spent in discharge related activities (mins): 35 Plan Prescriptions: Ferrous Gluconate [Ferate] 240 mg PO BID #60 tablet Home Medications: Medication Instructions Recorded Confirmed Type Nadolol 2 tab PO QAM 06/29/17 04/23/20 History Pantoprazole Sodium [Protonix] 1 tab PO QAM 06/29/17 04/23/20 History Pravastatin Sodium 1 tab PO HS 06/29/17 04/23/20 History Valsartan/Hydrochlorothiazide 1 tab PO QAM 06/29/17 04/23/20 History [Valsartan-Hctz 160-25 mg Tab] glyBURIDE [Glyburide] 2 tab PO BID 06/29/17 04/23/20 History Cholecalciferol (Vitamin D3) 500 units PO DAILY 04/23/20 04/23/20 History [Vitamin D3] Dapagliflozin Propanediol [Farxiga] 1 mg PO DAILY 04/23/20 04/23/20 History Fish Oil/Borage/Flax/Om3,6,9 1 800 mg PO DAILY 04/23/20 04/23/20 History [Flaxseed/Fish/Borage Oil Softgel] Glucosamine Sulfate 1,000 mg PO DAILY 04/23/20 04/23/20 History Multivit-Min/Iron/Folic/Lutein 500 mg PO DAILY 04/23/20 04/23/20 History [Multivitamin Women 50 Plus Tab] Vitamin E 1 cap PO DAILY 04/23/20 04/23/20 History metFORMIN HCl [Metformin ER 500 tab PO BID 04/23/20 04/23/20 History Osmotic] Ferrous Gluconate [Ferate] 240 mg PO BID #60 tablet 04/26/20 Rx Allergies: atorvastatin [From Lipitor] Adverse Reaction (Verified 04/24/20 08:40) Discharge Instructions:: Follow up with Dr. Hall in 1-2 weeks to recheck your blood count (CBC) Return to ED if your symptoms recur or worsen Take your iron pill along with colace as we have discussed. Follow up with PCP in 1-2 weeks Activity:: Activity as Tolerated Nourishment:: Heart Healthy Diet, Low Sodium Diet Referrals: Fabian Stephen MD [Primary Care Provider] - (follow up in 1-2 weeks) Jose Hall MD [Active] - (follow up in 1-2 weeks) Disposition: HOME Quality CORE MEASURES:: N/A
--- NOTE | 2020-04-26 10:39 | PRG ---
DATE OF SERVICE: 04/26/2020 REASON FOR CONSULTATION: Cirrhosis of the liver, now status post band ligation x3 for bleeding esophageal varices, anemia. SUBJECTIVE: Last night/early this morning, the patient did have a semi-solid black-colored bowel movement with no difficulty with defecation. Did have a pungent odor associated with it. She has not had any further episodes of these darker black stools since then. Otherwise, she denies any nausea, vomiting, fevers, chills, hematemesis, hematochezia, abdominal pain, dysphagia, or odynophagia. She had been able to tolerate a more solid diet yesterday without difficulty. OBJECTIVE: VITAL SIGNS: Temperature 97.7, pulse 71, blood pressure 123/75, respiratory rate 18, and saturating 100% on room air. GENERAL: The patient was sitting in a chair at bedside, in no acute distress. Alert and oriented x4. CARDIOVASCULAR: Regular rate and rhythm. RESPIRATORY: Clear to auscultation bilaterally. ABDOMEN: Normoactive bowel sounds. Soft, nontender, nondistended. EXTREMITIES: No cyanosis, clubbing, or edema. LABORATORY DATA: CBC with a white blood cell count of 3.1, hemoglobin 7.3, hematocrit 21.1, and platelets 108. IMAGING DATA: No current GI imaging is available for review. ASSESSMENT AND PLAN: The patient is a 64-year-old female with past medical history of diabetes, anemia, anxiety, hypertension, gastroesophageal reflux disease, hyperlipidemia, and cirrhosis secondary to nonalcoholic fatty liver disease, now complicated by bleeding esophageal varices. Upper gastrointestinal bleeding/esophageal varices: The patient underwent upper endoscopy on April 23, 2020, which showed a significant amount of blood within the stomach but with non-visualization of the proximal stomach. On further evaluation, the patient did not have any overt abnormalities within the stomach, but did have large distal esophageal varices with high-risk stigmata for bleeding for which she ultimately underwent band ligation x3. Since that time, she was admitted to the hospital and placed on antibiotics, octreotide, and PPI and initially did have a drop in her H and H, but over the last 24 hours, has had no significant decrease in her H and H despite having darker black bowel movement. At this time, I think the darker black bowel movement from last night is more remnant of the blood seen during the upper endoscopy on the rather than continued GI bleeding. At this time, she is asymptomatic and responded well to treatment with potential for discharge to home today. RECOMMENDATIONS: 1. Can discontinue the octreotide drip given the total duration of therapy of approximately 72 hours. 2. Continue the patient on pantoprazole, but can decrease to 40 mg daily once discharge. 3. Would continue antibiotic administration for 5 days of total therapy (could transfer to ciprofloxacin for the last few days). 4. Continue higher protein low-sodium diet. 5. Would have the patient follow up in the GI clinic in 2 weeks for further management. We will sign off at this time. Please call with any questions. Job ID: [id number]
== END 2020-04-26 10:50 | disposition home or self-care (01) ==
LOC: ERS 09:30 → T4-B 13:03
PROVIDERS: ADMIT Internal Medicine; ATTEND Family Medicine
DX: K76.0 Fatty (change of) liver, not elsewhere classified (principal); K74.69 Other cirrhosis of liver; K76.6 Portal hypertension; I85.11 Secondary esophageal varices with bleeding; D62 Acute posthemorrhagic anemia; D50.9 Iron deficiency anemia, unspecified; E11.9 Type 2 diabetes mellitus without complications; I10 Essential (primary) hypertension; E78.5 Hyperlipidemia, unspecified; K21.9 Gastro-esophageal reflux disease without esophagitis; F41.9 Anxiety disorder, unspecified; Z79.82 Long term (current) use of aspirin; Z79.84 Long term (current) use of oral hypoglycemic drugs; Z79.899 Other long term (current) drug therapy; Z88.8 Allergy status to other drugs, medicaments and biological substances; Z20.822 Contact with and (suspected) exposure to COVID-19
CPT/HCPCS: 36415; 36416; 36430; 71260; 74177; 80048; 80053; 85018; 85025; 85027; 85610; 85730; 86850; 86900; 86901; 87635; 96365; 96374; 96375; 96376; C9113; G0378; J0696; J1815; J2354; J2405; J3010; J3490; J7050; Q9967; U0003; U0005

== ENCOUNTER 2020-07-13 08:08 | Outpatient (CLI) | payer BC | END 2020-07-13 08:09 | disposition home or self-care (01) | LOC: BICMAMMO 08:08 | PROVIDERS: ATTEND Obstetrics & Gynecology | DX: Z13.820 Encounter for screening for osteoporosis (principal) | CPT/HCPCS: 77080 ==

== ENCOUNTER 2021-09-05 07:42 | Outpatient (CLI) | payer BC | END 2021-09-05 07:43 | disposition home or self-care (01) | LOC: BICULT 07:42 | PROVIDERS: ATTEND Internal Medicine Gastroenterology | DX: K74.60 Unspecified cirrhosis of liver (principal); R16.1 Splenomegaly, not elsewhere classified; K82.8 Other specified diseases of gallbladder | CPT/HCPCS: 76705 ==

== ENCOUNTER 2022-04-03 07:33 | Outpatient (CLI) | payer BC | END 2022-04-03 07:34 | disposition home or self-care (01) | LOC: ULT 07:33 | PROVIDERS: ATTEND Internal Medicine Gastroenterology | DX: K74.60 Unspecified cirrhosis of liver (principal); K82.8 Other specified diseases of gallbladder; R16.1 Splenomegaly, not elsewhere classified | CPT/HCPCS: 76705 ==

== ENCOUNTER 2022-12-29 12:21 | Outpatient (CLI) | payer MEDICARE, BC | END 2022-12-29 12:22 | disposition home or self-care (01) | LOC: ULT 12:21 | PROVIDERS: ATTEND Internal Medicine | DX: R01.1 Cardiac murmur, unspecified (principal); I35.1 Nonrheumatic aortic (valve) insufficiency | CPT/HCPCS: 93306 ==

== ENCOUNTER 2023-10-11 15:30 | Inpatient (IN) | payer MEDICARE ==
[~2023-10-11 15:30] MED LIST: Iopamidol-370 76% 500 ML MDV (1 ML CHARGE) ONE
[2023-10-11] MEDS ORDERED: Pantoprazole 40 MG VIAL ONE (16:31)
[2023-10-11 16:32] LABS: #Basophils 0.07 10x3/uL (0.0-0.2); %Basophils 0.8 % (0.0-1.0); %Eosinophils 3.4 % (0.0-10.0); %Lymphocytes 10.6 % (21.0-51.0); %Monocytes 6.8 % (0.0-10.0); %Neutrophils 78.2 % (42.0-75.0); Mean Corpuscular HGB CONC 33.3 g/dL (32.0-36.0); Mean Corpuscular Hemoglobin 27.4 pg (27.0-31.0); Mean Corpuscular Volume 82.1 fL (78.0-98.0); Mean Platelet Volume 10.5 fL (7.4-10.4); Platelet Count 141 10x3/uL (130-400); RBC Distribution Width 14.8 % (11.5-14.5); Red Blood Cell (RBC) Count 3.29 mill/uL (4.20-5.40)
[2023-10-11] MEDS ORDERED: Octreotide Acetate 500 MCG/ML VIAL ONE (16:33)
[2023-10-11 16:45] LABS: INR-International Normal Ratio 1.2; Prothrombin Time 15.2 sec (12.0-14.7)
[2023-10-11] MEDS ORDERED: Octreotide Acetate 1,250 MCG in Sodium Chloride 0.9% 250 ML 250 ML IVPB SCH ×2 (16:45→19:30)
[2023-10-11] MEDS ORDERED: Pantoprazole 80 MG in Sodium Chloride 0.9% 100 ML IVPB SCH ×2 (16:45→19:30)
[2023-10-11 16:46] LABS: ALT (SGPT) 28 U/L (8-55); AST (SGOT) 32 U/L (5-34); Albumin 3.7 g/dL (3.4-4.8); Alkaline Phosphatase 78 U/L (40-110); Anion Gap 16 mmol/L (10-20); BUN (Urea Nitrogen) 30 mg/dL (9.8-20.1); Bilirubin, Total 1.9 mg/dL (0.2-1.2); Calc. Creatinine Clearance 0 mL/min (70-130); Calcium 9.7 mg/dL (7.8-10.44); Carbon Dioxide 23 mmol/L (23-31); Chloride 106 mmol/L (98-107); Estimated GFR 75; Globulin 3.1 g/dL (2.4-3.5); Glucose 134 mg/dL (80-115); Potassium 4.5 mmol/L (3.5-5.1); Protein, Total 6.8 g/dL (5.8-8.1); Sodium 140 mmol/L (136-145)
[2023-10-11 16:50] LABS: Troponin I Less than 0.010 ng/mL (< 0.028)
[2023-10-11] MEDS ORDERED: Ondansetron PF 4 MG/2 ML Vial ONE (16:50)
[2023-10-11] MEDS ORDERED: Sodium Chloride 0.9% 100 ML ONE (17:48)
[2023-10-11] MEDS ORDERED: cefTRIAXone (ROCEPHIN) 2 GM VIAL ONE (17:48)
[2023-10-11 19:01] LABS: Lipase 22 U/L (8-78); Magnesium 1.5 mg/dL (1.6-2.6)
[2023-10-11] MEDS ORDERED: Glucagon 1 MG/ML KIT IM PRN (19:20)
[2023-10-11] MEDS ORDERED: Dextrose 5% in Water 1,000 ML IV PRN (19:20)
[2023-10-11 20:31] VITALS: BMI 24.1
[2023-10-11] MEDS: Octreotide Acetate 50 MCG/ML AMP SLOW IVP SCH (21:18)
[2023-10-11 21:23] LABS: Hematocrit 24.2 % (36.0-47.0); Platelet Count 89 10x3/uL (130-400)
[2023-10-11] MEDS: Magnesium 2 GM/50 ML(in water) 2 GM in Premix 1 BAG IVPB SCH (21:41)
[2023-10-11] MEDS: Sodium Chloride 0.9% 1,000 ML IV SCH (21:41)
[2023-10-12] MEDS: Dextrose 50% Abboject 50 ML SYRINGE SLOW IVP PRN (00:26)
[2023-10-12 08:37] LABS: #Basophils 0.04 10x3/uL (0.0-0.2); %Basophils 0.7 % (0.0-1.0); %Eosinophils 5.1 % (0.0-10.0); %Lymphocytes 14.8 % (21.0-51.0); %Monocytes 10.1 % (0.0-10.0); %Neutrophils 69.1 % (42.0-75.0); Hematocrit 24.3 % (36.0-47.0); Hemoglobin 7.8 g/dL (12.0-16.0); Mean Corpuscular HGB CONC 32.1 g/dL (32.0-36.0); Mean Corpuscular Hemoglobin 27.5 pg (27.0-31.0); Mean Corpuscular Volume 85.6 fL (78.0-98.0); Mean Platelet Volume 10.1 fL (7.4-10.4); Platelet Count 115 10x3/uL (130-400); RBC Distribution Width 15.2 % (11.5-14.5); Red Blood Cell (RBC) Count 2.84 mill/uL (4.20-5.40)
[2023-10-12 08:40] LABS: ALT (SGPT) 27 U/L (8-55); AST (SGOT) 26 U/L (5-34); Albumin 3.5 g/dL (3.4-4.8); Alkaline Phosphatase 68 U/L (40-110); Anion Gap 14 mmol/L (10-20); BUN (Urea Nitrogen) 28 mg/dL (9.8-20.1); Bilirubin, Total 1.1 mg/dL (0.2-1.2); Calc. Creatinine Clearance 67 mL/min (70-130); Calcium 8.8 mg/dL (7.8-10.44); Carbon Dioxide 22 mmol/L (23-31); Chloride 109 mmol/L (98-107); Estimated GFR 68; Globulin 2.7 g/dL (2.4-3.5); Glucose 144 mg/dL (80-115); Magnesium 2.2 mg/dL (1.6-2.6); Potassium 4.1 mmol/L (3.5-5.1); Protein, Total 6.2 g/dL (5.8-8.1); Sodium 141 mmol/L (136-145)
[2023-10-12] MEDS ORDERED: Pantoprazole 80 MG, Admixture Fee 1 EACH in Sodium Chloride 0.9% 100 ML IVPB SCH (08:45)
[2023-10-12] MEDS ORDERED: PROPOFOL 200 MG/20 ML VIAL ONE (09:15)
[2023-10-12] MEDS ORDERED: fentaNYL 50 mcg/mL 1 mL Vial ONE (09:16)
[2023-10-12] MEDS ORDERED: Etomidate 40 MG (20 mL) VIAL ONE (09:21)
[2023-10-12] MEDS ORDERED: Promethazine HCl 25 MG/ML VIAL ONE (10:00)
[2023-10-12 16:01] LABS: Hematocrit 27.1 % (36.0-47.0)
[2023-10-12 16:02] LABS: Hemoglobin 8.8 g/dL (12.0-16.0); Platelet Count 68 10x3/uL (130-400)
[2023-10-12 16:17] LABS: Lactic Acid 1.3 mmol/L (0.5-2.2)
[2023-10-12] MEDS: cefTRIAXone\\ROCEPHIN 1 GM in Sodium Chloride 0.9% 100 ML IVPB SCH (16:40)
[2023-10-12] MEDS ORDERED: Pantoprazole 40 MG VIAL IVP SCH (21:00)
[2023-10-12] MEDS: Pantoprazole 40 MG VIAL IVP SCH (21:21)
[2023-10-12 22:32] LABS: Hematocrit 23.1 % (36.0-47.0); Hemoglobin 7.7 g/dL (12.0-16.0)
[2023-10-13] MEDS: Insulin Lispro 100 UNIT/ML 10 ML VIAL SC PRN (00:45)
[2023-10-13 08:32] LABS: ALT (SGPT) 21 U/L (8-55); AST (SGOT) 22 U/L (5-34); Alkaline Phosphatase 57 U/L (40-110); Anion Gap 7 mmol/L (10-20); BUN (Urea Nitrogen) 14 mg/dL (9.8-20.1); Bilirubin, Total 0.9 mg/dL (0.2-1.2); Calc. Creatinine Clearance 85 mL/min (70-130); Calcium 8.1 mg/dL (7.8-10.44); Carbon Dioxide 23 mmol/L (23-31); Chloride 116 mmol/L (98-107); Estimated GFR 91; Globulin 2.3 g/dL (2.4-3.5); Glucose 95 mg/dL (80-115); Potassium 3.4 mmol/L (3.5-5.1); Protein, Total 5.3 g/dL (5.8-8.1); Sodium 143 mmol/L (136-145)
[2023-10-13 08:40] LABS: Hematocrit 22.9 % (36.0-47.0); Hemoglobin 7.5 g/dL (12.0-16.0); Mean Corpuscular HGB CONC 32.8 g/dL (32.0-36.0); Mean Corpuscular Volume 85.4 fL (78.0-98.0); Mean Platelet Volume 10.4 fL (7.4-10.4); Platelet Count 61 10x3/uL (130-400); RBC Distribution Width 15.9 % (11.5-14.5); Red Blood Cell (RBC) Count 2.68 mill/uL (4.20-5.40)
[2023-10-13 09:55] LABS: Burr Cells SLIGHT = 2-5 cells HPF (0-1); Elliptocytes SLIGHT = 2-5 cells HPF (0-1); Eosinophils 2 % (0-10); Lymphocytes 15 % (21-51); Monocytes 10 % (0-10); Neutrophil 72 % (42-75); Platelet Adequacy Comment Platelets Decreased; Polychromasia SLIGHT = 2-3 cells HPF (0-2)
[2023-10-14 04:25] LABS: INR-International Normal Ratio 1.3; PTT 31.8 sec (22.9-36.1); Prothrombin Time 15.8 sec (12.0-14.7)
[2023-10-14 04:34] LABS: Anion Gap 9 mmol/L (10-20); BUN (Urea Nitrogen) 11 mg/dL (9.8-20.1); Calc. Creatinine Clearance 85 mL/min (70-130); Calcium 8.5 mg/dL (7.8-10.44); Carbon Dioxide 23 mmol/L (23-31); Chloride 111 mmol/L (98-107); Estimated GFR 91; Glucose 161 mg/dL (80-115); Potassium 3.4 mmol/L (3.5-5.1); Sodium 140 mmol/L (136-145)
[2023-10-14] MEDS: Pantoprazole 40 MG VIAL IVP SCH (08:43)
[2023-10-14] MEDS: Sodium Ferric Gluconate 250 MG in Sodium Chloride 0.9% 250 ML 250 ML IVPB SCH (11:00)
[2023-10-14 12:07] LABS: #Basophils Less than 0.03 10x3/uL (0.0-0.2); %Basophils 0.3 % (0.0-1.0); %Lymphocytes 13.9 % (21.0-51.0); %Monocytes 9.6 % (0.0-10.0); %Neutrophils 70.9 % (42.0-75.0); Hematocrit 24.1 % (36.0-47.0); Hemoglobin 8.1 g/dL (12.0-16.0); Mean Corpuscular HGB CONC 33.6 g/dL (32.0-36.0); Mean Corpuscular Hemoglobin 28.1 pg (27.0-31.0); Mean Corpuscular Volume 83.7 fL (78.0-98.0); Mean Platelet Volume 10.3 fL (7.4-10.4); Platelet Count 67 10x3/uL (130-400); RBC Distribution Width 15.7 % (11.5-14.5); Red Blood Cell (RBC) Count 2.88 mill/uL (4.20-5.40)
[2023-10-14] MEDS: Insulin Lispro 100 UNIT/ML 10 ML VIAL SC PRN (18:34)
[2023-10-14 23:39] VITALS: TEMP 97.9
[2023-10-15 06:47] LABS: Hematocrit 23.4 % (36.0-47.0); Hemoglobin 7.8 g/dL (12.0-16.0)
[2023-10-15 06:53] LABS: #Basophils Less than 0.03 10x3/uL (0.0-0.2); %Basophils 0.8 % (0.0-1.0); %Eosinophils 4.9 % (0.0-10.0); %Lymphocytes 18.4 % (21.0-51.0); %Monocytes 12.3 % (0.0-10.0); %Neutrophils 63.2 % (42.0-75.0); Hematocrit 23.2 % (36.0-47.0); Hemoglobin 7.8 g/dL (12.0-16.0); Mean Corpuscular HGB CONC 33.6 g/dL (32.0-36.0); Mean Corpuscular Hemoglobin 28.8 pg (27.0-31.0); Mean Corpuscular Volume 85.6 fL (78.0-98.0); Mean Platelet Volume 9.9 fL (7.4-10.4); Platelet Count 65 10x3/uL (130-400); RBC Distribution Width 15.7 % (11.5-14.5); Red Blood Cell (RBC) Count 2.71 mill/uL (4.20-5.40)
[2023-10-15 07:22] LABS: ALT (SGPT) 19 U/L (8-55); AST (SGOT) 19 U/L (5-34); Albumin 3.1 g/dL (3.4-4.8); Alkaline Phosphatase 60 U/L (40-110); Anion Gap 11 mmol/L (10-20); BUN (Urea Nitrogen) 9 mg/dL (9.8-20.1); Bilirubin, Total 0.8 mg/dL (0.2-1.2); Calc. Creatinine Clearance 85 mL/min (70-130); Calcium 8.5 mg/dL (7.8-10.44); Carbon Dioxide 23 mmol/L (23-31); Chloride 112 mmol/L (98-107); Estimated GFR 91; Globulin 2.3 g/dL (2.4-3.5); Glucose 152 mg/dL (80-115); Magnesium 1.8 mg/dL (1.6-2.6); Potassium 3.2 mmol/L (3.5-5.1); Protein, Total 5.4 g/dL (5.8-8.1); Sodium 143 mmol/L (136-145)
[2023-10-15 08:10] LABS: Hemoglobin A1c 6.4 % (4.0-6.0)
[2023-10-15] MEDS: Nadolol 40 MG TAB PO SCH (08:28)
[2023-10-15] MEDS: Rosuvastatin 10 MG TAB PO SCH (08:28)
[2023-10-15] MEDS: metFORMIN XR 500 MG ER.TAB PO SCH (08:28)
[2023-10-15] MEDS: Potassium Chloride 20 MEQ TAB PO SCH (08:28)
[2023-10-15] MEDS: Multivitamin W/ Minerals 1 TAB PO SCH (08:28)
[2023-10-15] MEDS: Pantoprazole DR 40 MG TAB PO SCH (08:28)
[2023-10-15] MEDS: Insulin Glargine 30 UNITS/0.3 ML VIAL SC SCH (08:29)
[2023-10-15] MEDS ORDERED: METFORMIN HCL 500 MG PO SCH (09:00)
[2023-10-15] MEDS ORDERED: Non-Formulary Item 1 EACH (Multivit-Min/Iron/Folic/Lutein [Multivitamin Women 50 Plus Tab PO SCH (09:00)
[2023-10-15] MEDS ORDERED: Lantus 1000 UNITS/10 ML VIAL SC SCH (09:00)
[2023-10-15] MEDS ORDERED: Non-Formulary Item 1 EACH (Nadolol [Nadolol] 20 MG Tablet) PO SCH (09:00)
[2023-10-15 12:02] VITALS: BP 131/73
[2023-10-16] MEDS ORDERED: Insulin Glargine 30 UNITS/0.3 ML VIAL SC SCH (09:00)
== END 2023-10-15 15:27 | disposition home or self-care (01) | DRG 432 ==
LOC: ERS 15:30 → IMCU/EMU 17:58 → T4-A 10-14 14:34
PROVIDERS: ADMIT Internal Medicine; ATTEND Family Medicine
PROC: 06L38CZ Occlusion of Esophageal Vein with Extraluminal Device, Via Natural or Artificial Opening Endoscopic (ICD-10-PCS; principal; 2023-10-12)
PROC: 30233N1 Transfusion of Nonautologous Red Blood Cells into Peripheral Vein, Percutaneous Approach (ICD-10-PCS; 2023-10-12)
DX: K74.60 Unspecified cirrhosis of liver (principal); I85.01 Esophageal varices with bleeding; D62 Acute posthemorrhagic anemia; K76.6 Portal hypertension; K75.81 Nonalcoholic steatohepatitis (NASH); I45.10 Unspecified right bundle-branch block; R91.1 Solitary pulmonary nodule; K31.89 Other diseases of stomach and duodenum; I10 Essential (primary) hypertension; E78.5 Hyperlipidemia, unspecified; D50.9 Iron deficiency anemia, unspecified; Z88.8 Allergy status to other drugs, medicaments and biological substances; Z79.84 Long term (current) use of oral hypoglycemic drugs; Z79.899 Other long term (current) drug therapy; Z98.890 Other specified postprocedural states; Z98.891 History of uterine scar from previous surgery; Z90.5 Acquired absence of kidney
CPT/HCPCS: 36415; 36416; 36430; 74177; 76705; 80048; 80053; 82274; 83036; 83605; 83690; 83735; 84484; 85025; 85610; 85730; 86850; 86900; 86901; 93005; 96374; 96375; 96376; C9113; J0696; J1815; J2354; J2405; J2550; J2704; J2916; J3010; J3475; J3490; J7050; J7999; P9016; Q9967

== ENCOUNTER 2024-03-06 13:48 | Inpatient (IN) | payer BC, MEDICARE, SELFPAY ==
[2024-03-06] MEDS ORDERED: Magnesium 2 GM/50 ML BAG (IN WATER) ONE (14:19)
[2024-03-06] MEDS ORDERED: Pantoprazole 40 MG VIAL ONE (14:19)
[2024-03-06 14:25] LABS: #Basophils 0.05 10x3/uL (0.0-0.2); %Basophils 0.7 % (0.0-1.0); %Eosinophils 3.2 % (0.0-10.0); %Lymphocytes 19.6 % (21.0-51.0); %Monocytes 15.6 % (0.0-10.0); %Neutrophils 60.6 % (42.0-75.0); Hematocrit 31.2 % (36.0-47.0); Hemoglobin 10.6 g/dL (12.0-16.0); Mean Corpuscular Hemoglobin 27.7 pg (27.0-31.0); Mean Corpuscular Volume 81.5 fL (78.0-98.0); Mean Platelet Volume 9.7 fL (7.4-10.4); Platelet Count 171 10x3/uL (130-400); RBC Distribution Width 16.6 % (11.5-14.5); Red Blood Cell (RBC) Count 3.83 mill/uL (4.20-5.40)
[2024-03-06 14:37] LABS: INR-International Normal Ratio 1.1; Prothrombin Time 14.5 sec (12.0-14.7)
[2024-03-06 14:38] LABS: PTT 26.8 sec (22.9-36.1)
[2024-03-06] MEDS ORDERED: Sodium Chloride 0.9% 100 ML ONE (14:42)
[2024-03-06] MEDS ORDERED: cefTRIAXone (ROCEPHIN) 1 GM VIAL ONE (14:42)
[2024-03-06] MEDS ORDERED: Metoprolol Tartrate 5 MG (5 mL) VIAL ONE (14:42)
[2024-03-06 14:44] LABS: Lipase 62 U/L (8-78); Magnesium 1.9 mg/dL (1.6-2.6)
[2024-03-06 14:45] LABS: Acetaminophen Less than 10 mcg/mL (Less than 10); Alcohol Less than 10.0 mg/dL (Less than 10); Salicylate Less than 8.0 mg/dL (Less than 8.0)
[2024-03-06 14:46] LABS: ALT (SGPT) 63 U/L (8-55); AST (SGOT) 84 U/L (5-34); Albumin 3.9 g/dL (3.4-4.8); Alkaline Phosphatase 98 U/L (40-110); Anion Gap 20 mmol/L (10-20); BUN (Urea Nitrogen) 25 mg/dL (9.8-20.1); Bilirubin, Total 1.6 mg/dL (0.2-1.2); Calc. Creatinine Clearance 0 mL/min (70-130); Calcium 9.7 mg/dL (7.8-10.44); Carbon Dioxide 20 mmol/L (23-31); Chloride 107 mmol/L (98-107); Estimated GFR 72; Globulin 3.5 g/dL (2.4-3.5); Glucose 150 mg/dL (80-115); Potassium 4.5 mmol/L (3.5-5.1); Protein, Total 7.4 g/dL (5.8-8.1); Sodium 142 mmol/L (136-145)
[2024-03-06 14:57] LABS: Troponin I 1.565 ng/mL (< 0.028)
[2024-03-06] MEDS ORDERED: Aspirin Chewable 81 MG TAB ONE (16:10)
[2024-03-06] MEDS ORDERED: Furosemide 20 MG (2 mL) VIAL ONE (16:10)
[2024-03-06] MEDS ORDERED: Acetaminophen/Codeine 30-300mg Tablet PO PRN (16:59)
[2024-03-06] MEDS ORDERED: Acetaminophen 650 MG Suppository PR PRN (16:59)
[2024-03-06] MEDS ORDERED: Ondansetron ODT 4 MG TAB PO PRN (16:59)
[2024-03-06] MEDS ORDERED: Acetaminophen 325 MG TAB PO PRN (16:59)
[2024-03-06] MEDS ORDERED: Nitroglycerin 0.4 MG TAB (25 Tab Bottle) SL PRN (16:59)
[2024-03-06] MEDS ORDERED: Ondansetron PF 4 MG/2 ML Vial IVP PRN (16:59)
[2024-03-06] MEDS ORDERED: Heparin 25,000 units/D5W 500 ML IVPB SCH (17:00)
[2024-03-06] MEDS ORDERED: Heparin 10,000 UNITS/ 10 ML VIAL SLOW IVP SCH (17:00)
[2024-03-06] MEDS ORDERED: Dextrose 50% Abboject 50 ML SYRINGE SLOW IVP PRN (17:33)
[2024-03-06] MEDS ORDERED: Glucagon 1 MG/ML KIT IM PRN (17:33)
[2024-03-06] MEDS ORDERED: Dextrose 5% in Water 1,000 ML IV PRN (17:33)
[2024-03-06 17:44] LABS: Hematocrit 25.5 % (36.0-47.0); Hemoglobin 8.6 g/dL (12.0-16.0); Platelet Count 98 10x3/uL (130-400)
[2024-03-06 18:10] LABS: Troponin I 2.531 ng/mL (< 0.028)
[2024-03-06] MEDS ORDERED: Heparin 5,000 UNITS/ML VIAL ONE (18:25)
[2024-03-06] MEDS ORDERED: Heparin 25,000 units/D5W 500 ML ONE (18:25)
[2024-03-06 19:00] LABS: Lactic Acid 2.68 mmol/L (0.5-2.2)
[2024-03-06 19:03] LABS: Amphetamine Not Detected (NotDetected); Barbiturates Screen Not Detected (NotDetected); Benzodiazepine Screen Not Detected (NotDetected); Cocaine Metabolite Screen Not Detected (NotDetected); Methadone Not Detected (NotDetected); Methamphetamine Not Detected (NotDetected); Opiate Screen Not Detected (NotDetected); Oxycodone Screen Not Detected (NotDetected); Phencyclidine (PCP) Not Detected (NotDetected); THC/Cannabinoid Screen Not Detected (NotDetected); Tricyclic Screen Not Detected (NotDetected)
[2024-03-06 19:08] LABS: Bacteria/HPF None Seen HPF (None Seen); Bilirubin Negative (Negative); Blood, Urine Negative (Negative); Clarity Clear (Clear); Glucose, Urine (Dipstick) Normal (Negative); Ketone, Urine Negative (Negative); Leukocyte Negative Leu/uL (Negative); Nitrite Negative (Negative); Protein, Urine (Dipstick) Negative (Neg-Trace); RBC/HPF 0-3 HPF (0-3); Specific Gravity, Urine 1.016 (1.002-1.036); Squamous Epithelial 0-3 HPF (0-3); Urobilinogen Normal mg/dL (Less than 2); WBC/HPF 0-3 HPF (0-3)
[2024-03-06] MEDS: dilTIAZem CD 120 MG CAP PO SCH (19:34)
[2024-03-06] MEDS: Sodium Chloride 0.9% 500 ML IV SCH (21:33)
[2024-03-06 21:54] LABS: Troponin I 2.769 ng/mL (< 0.028)
[2024-03-06] MEDS: Sodium Chloride 0.9% 1,000 ML IV SCH (22:36)
[2024-03-07] MEDS ORDERED: DOBUTamine 500 mg/250 ml 250 ML ONE (01:01)
[2024-03-07] MEDS: Insulin Glargine 30 UNITS/0.3 ML VIAL SC SCH ×2 (01:16→23:02)
[2024-03-07] MEDS: DOBUTamine 500 mg/250 ml 250 ML IVPB SCH (01:25)
[2024-03-07 06:25] LABS: ALT (SGPT) 57 U/L (8-55); AST (SGOT) 69 U/L (5-34); Albumin 2.9 g/dL (3.4-4.8); Alkaline Phosphatase 70 U/L (40-110); Anion Gap 14 mmol/L (10-20); BUN (Urea Nitrogen) 19 mg/dL (9.8-20.1); Bilirubin, Total 0.6 mg/dL (0.2-1.2); Calc. Creatinine Clearance 88 mL/min (70-130); Calcium 8.3 mg/dL (7.8-10.44); Carbon Dioxide 20 mmol/L (23-31); Cardiac Risk 4.4 (Less than 4.5); Chloride 111 mmol/L (98-107); Cholesterol 106 mg/dl (< 200 Desired); Estimated GFR 96; Globulin 2.7 g/dL (2.4-3.5); Glucose 109 mg/dL (80-115); HDL Cholesterol 24 mg/dL (>60 Neg Risk); LDL Cholesterol, Calculated 60 mg/dL; Potassium 3.2 mmol/L (3.5-5.1); Protein, Total 5.6 g/dL (5.8-8.1); Sodium 142 mmol/L (136-145); Triglycerides 108 mg/dL (Less than 150)
[2024-03-07 06:26] LABS: Hematocrit 21.8 % (36.0-47.0); Hemoglobin 7.2 g/dL (12.0-16.0); Mean Corpuscular Hemoglobin 27.5 pg (27.0-31.0); Mean Corpuscular Volume 83.2 fL (78.0-98.0); Mean Platelet Volume 10.1 fL (7.4-10.4); Platelet Count 59 10x3/uL (130-400); RBC Distribution Width 16.4 % (11.5-14.5); Red Blood Cell (RBC) Count 2.62 mill/uL (4.20-5.40)
[2024-03-07 06:49] LABS: Band 4 % (5-11); Eosinophils 7 % (0-10); Large Platelets 1.8 % (0-5); Lymphocytes 33 % (21-51); Monocytes 9 % (0-10); Neutrophil 47 % (42-75); Ovalocytes SLIGHT = 2-5 cells HPF (0-1); Platelet Adequacy Comment Platelets Decreased; Polychromasia SLIGHT = 2-3 cells HPF (0-2)
[2024-03-07 08:20] LABS: Anion Gap 12 mmol/L (10-20); BUN (Urea Nitrogen) 17 mg/dL (9.8-20.1); Calc. Creatinine Clearance 86 mL/min (70-130); Carbon Dioxide 20 mmol/L (23-31); Chloride 113 mmol/L (98-107); Estimated GFR 94; Glucose 95 mg/dL (80-115); Potassium 3.4 mmol/L (3.5-5.1); Sodium 142 mmol/L (136-145)
[2024-03-07 08:30] LABS: Hematocrit 21.9 % (36.0-47.0); Hemoglobin 7.3 g/dL (12.0-16.0); Mean Corpuscular HGB CONC 33.3 g/dL (32.0-36.0); Mean Corpuscular Hemoglobin 27.8 pg (27.0-31.0); Mean Corpuscular Volume 83.3 fL (78.0-98.0); Platelet Count 56 10x3/uL (130-400); RBC Distribution Width 16.3 % (11.5-14.5); Red Blood Cell (RBC) Count 2.63 mill/uL (4.20-5.40)
[2024-03-07 08:36] LABS: Troponin I 2.003 ng/mL (< 0.028)
[2024-03-07 09:23] LABS: Anisocytosis SLIGHT = 6-15 cells HPF (0-5); Elliptocytes SLIGHT = 2-5 cells HPF (0-1); Eosinophils 8 % (0-10); Large Platelets 12.5 % (0-5); Lymphocytes 31 % (21-51); Monocytes 2 % (0-10); Neutrophil 54 % (42-75); Ovalocytes SLIGHT = 2-5 cells HPF (0-1); Platelet Adequacy Comment Platelets Decreased; Polychromasia SLIGHT = 2-3 cells HPF (0-2)
[2024-03-07] MEDS: Pantoprazole DR 40 MG TAB PO SCH (10:03)
[2024-03-07] MEDS: Vitamin E 400 UNITS CAP PO SCH (10:03)
[2024-03-07 16:37] LABS: Influenza A by NAA Not Detected (NotDetected); Influenza B by NAA Not Detected (NotDetected); RSV by NAA Not Detected (NotDetected); SARS-CoV-2 NAA Rapid Test Not Detected (NotDetected)
[2024-03-07 16:53] LABS: Hematocrit 22.9 % (36.0-47.0); Hemoglobin 7.6 g/dL (12.0-16.0); Mean Corpuscular HGB CONC 33.2 g/dL (32.0-36.0); Mean Corpuscular Hemoglobin 27.5 pg (27.0-31.0); Mean Platelet Volume 10.1 fL (7.4-10.4); Platelet Count 61 10x3/uL (130-400); RBC Distribution Width 16.4 % (11.5-14.5); Red Blood Cell (RBC) Count 2.76 mill/uL (4.20-5.40)
[2024-03-07 17:04] LABS: Anion Gap 12 mmol/L (10-20); BUN (Urea Nitrogen) 13 mg/dL (9.8-20.1); Calc. Creatinine Clearance 98 mL/min (70-130); Calcium 8.6 mg/dL (7.8-10.44); Carbon Dioxide 21 mmol/L (23-31); Chloride 113 mmol/L (98-107); Estimated GFR 98; Glucose 91 mg/dL (80-115); Potassium 3.5 mmol/L (3.5-5.1); Sodium 142 mmol/L (136-145)
[2024-03-07 17:14] LABS: Anisocytosis SLIGHT = 6-15 cells HPF (0-5); Band 2 % (5-11); Eosinophils 9 % (0-10); Large Platelets 3.9 % (0-5); Lymphocytes 21 % (21-51); Monocytes 7 % (0-10); Neutrophil 60 % (42-75); Platelet Adequacy Comment Platelets Decreased; Polychromasia SLIGHT = 2-3 cells HPF (0-2); Reactive Lymphocytes 2 % (0-10); Smudge Cells 8.8 %
[2024-03-07] MEDS: Rosuvastatin 10 MG TAB PO SCH (23:02)
[2024-03-08 06:01] VITALS: BMI 24.4
[2024-03-08 06:40] LABS: Hematocrit 23.5 % (36.0-47.0); Hemoglobin 7.8 g/dL (12.0-16.0); Mean Corpuscular HGB CONC 33.2 g/dL (32.0-36.0); Mean Corpuscular Hemoglobin 27.9 pg (27.0-31.0); Mean Corpuscular Volume 83.9 fL (78.0-98.0); Mean Platelet Volume 9.7 fL (7.4-10.4); Platelet Count 65 10x3/uL (130-400); RBC Distribution Width 16.4 % (11.5-14.5)
[2024-03-08 07:11] LABS: Band 2 % (5-11); Eosinophils 10 % (0-10); Large Platelets 2.9 % (0-5); Lymphocytes 16 % (21-51); Monocytes 9 % (0-10); Neutrophil 64 % (42-75); Platelet Adequacy Comment Platelets Decreased; Polychromasia SLIGHT = 2-3 cells HPF (0-2)
[2024-03-08 07:43] LABS: Iron 21 ug/dL (50-170); Iron Binding Capacity, Total 286 mcg/dL (265-497)
[2024-03-08] MEDS: Aspirin 81 mg Enteric Coated Tablet PO SCH (09:26)
[2024-03-08 09:50] LABS: ALT (SGPT) 63 U/L (8-55); AST (SGOT) 59 U/L (5-34); Albumin 3.3 g/dL (3.4-4.8); Alkaline Phosphatase 83 U/L (40-110); Anion Gap 15 mmol/L (10-20); BUN (Urea Nitrogen) 10 mg/dL (9.8-20.1); Bilirubin, Total 0.8 mg/dL (0.2-1.2); Calc. Creatinine Clearance 86 mL/min (70-130); Calcium 8.6 mg/dL (7.8-10.44); Carbon Dioxide 20 mmol/L (23-31); Chloride 110 mmol/L (98-107); Estimated GFR 92; Globulin 3.2 g/dL (2.4-3.5); Glucose 184 mg/dL (80-115); Potassium 3.7 mmol/L (3.5-5.1); Protein, Total 6.5 g/dL (5.8-8.1); Sodium 141 mmol/L (136-145)
[2024-03-08] MEDS: Sodium Ferric Gluconate 250 MG in Sodium Chloride 0.9% 250 ML 250 ML IVPB SCH (12:30)
[2024-03-08] MEDS: Insulin Lispro 100 UNIT/ML 10 ML VIAL SC PRN (12:42)
[2024-03-09 04:46] LABS: ALT (SGPT) 56 U/L (8-55); AST (SGOT) 48 U/L (5-34); Alkaline Phosphatase 81 U/L (40-110); Anion Gap 12 mmol/L (10-20); BUN (Urea Nitrogen) 10 mg/dL (9.8-20.1); Bilirubin, Total 0.5 mg/dL (0.2-1.2); Calc. Creatinine Clearance 92 mL/min (70-130); Calcium 8.6 mg/dL (7.8-10.44); Carbon Dioxide 22 mmol/L (23-31); Chloride 111 mmol/L (98-107); Estimated GFR 96; Globulin 2.7 g/dL (2.4-3.5); Glucose 119 mg/dL (80-115); Potassium 3.5 mmol/L (3.5-5.1); Protein, Total 5.7 g/dL (5.8-8.1); Sodium 141 mmol/L (136-145)
[2024-03-09 05:21] LABS: Hematocrit 22.1 % (36.0-47.0); Hemoglobin 7.4 g/dL (12.0-16.0); Mean Corpuscular HGB CONC 33.5 g/dL (32.0-36.0); Mean Corpuscular Hemoglobin 28.2 pg (27.0-31.0); Mean Corpuscular Volume 84.4 fL (78.0-98.0); Mean Platelet Volume 9.8 fL (7.4-10.4); Platelet Count 68 10x3/uL (130-400); RBC Distribution Width 16.3 % (11.5-14.5); Red Blood Cell (RBC) Count 2.62 mill/uL (4.20-5.40)
[2024-03-09 06:48] LABS: Anisocytosis SLIGHT = 6-15 cells HPF (0-5); Elliptocytes SLIGHT = 2-5 cells HPF (0-1); Eosinophils 5 % (0-10); Hypochromia SLIGHT = 6-15 cells HPF (0-5); Large Platelets 3.5 % (0-5); Lymphocytes 21 % (21-51); Monocytes 5 % (0-10); Neutrophil 68 % (42-75); Nucleated RBC (Manual Ct) 2 % (0); Platelet Adequacy Comment Platelets Normal; Polychromasia MODERATE = 3-4 cells HPF (0-2); Smudge Cells 3.5 %
[2024-03-09] MEDS: Carvedilol 3.125 MG TAB PO SCH (09:47)
[2024-03-09 12:27] VITALS: BP 119/71; TEMP 98.8
[2024-03-11 16:13] LABS: Heparin-Induced Ab (HITA) 0.059 OD (0.000-0.400)
== END 2024-03-09 13:25 | disposition home or self-care (01) | DRG 281 ==
LOC: ERS 13:48 → ERHOLD 16:48 → PCU 03-08 05:01
PROVIDERS: ADMIT Internal Medicine; ATTEND Internal Medicine
DX: I48.92 Unspecified atrial flutter (principal); D62 Acute posthemorrhagic anemia; I21.4 Non-ST elevation (NSTEMI) myocardial infarction; E11.9 Type 2 diabetes mellitus without complications; I10 Essential (primary) hypertension; D50.9 Iron deficiency anemia, unspecified; K80.20 Calculus of gallbladder without cholecystitis without obstruction; K76.0 Fatty (change of) liver, not elsewhere classified; D69.6 Thrombocytopenia, unspecified; E87.6 Hypokalemia; E78.5 Hyperlipidemia, unspecified; I47.10 Supraventricular tachycardia, unspecified; D64.9 Anemia, unspecified; I21.A1 Myocardial infarction type 2; K74.60 Unspecified cirrhosis of liver; Z90.710 Acquired absence of both cervix and uterus
CPT/HCPCS: 0241U; 36415; 36416; 71045; 71275; 80053; 80061; 80306; 80307; 81001; 82274; 82728; 83540; 83550; 83605; 83690; 83735; 83880; 84443; 84484; 85025; 85610; 85730; 86850; 86900; 86901; 87040; 87086; 93005; 93798; 96361; 96365; 96366; 96367; 96375; 96376; J0696; J1250; J1644; J1815; J1940; J2470; J2916; J3475; J7030; J7050; Q9967

== ENCOUNTER 2024-04-22 22:38 | Observation (INO) | payer MEDICARE, SELFPAY ==
[2024-04-22] MEDS ORDERED: Adenosine 6 mg (2 mL) VIAL ONE (22:51)
[2024-04-22] MEDS ORDERED: Metoprolol Tartrate 5 MG (5 mL) VIAL ONE (23:27)
[2024-04-22 23:29] LABS: #Basophils 0.05 10x3/uL (0.0-0.2); %Basophils 0.7 % (0.0-1.0); %Eosinophils 6.5 % (0.0-10.0); %Lymphocytes 15.6 % (21.0-51.0); %Monocytes 9.7 % (0.0-10.0); %Neutrophils 67.2 % (42.0-75.0); Hematocrit 34.8 % (36.0-47.0); Hemoglobin 11.7 g/dL (12.0-16.0); Mean Corpuscular HGB CONC 33.6 g/dL (32.0-36.0); Mean Corpuscular Hemoglobin 27.6 pg (27.0-31.0); Mean Corpuscular Volume 82.1 fL (78.0-98.0); Mean Platelet Volume 9.9 fL (7.4-10.4); Platelet Count 147 10x3/uL (130-400); RBC Distribution Width 14.9 % (11.5-14.5); Red Blood Cell (RBC) Count 4.24 mill/uL (4.20-5.40)
[2024-04-22 23:43] LABS: INR-International Normal Ratio 1.2; PTT 27.8 sec (22.9-36.1); Prothrombin Time 15.2 sec (12.0-14.7)
[2024-04-22 23:50] LABS: ALT (SGPT) 29 U/L (Less than 34); AST (SGOT) 34 U/L (11-34); Albumin 4.1 g/dL (3.1-4.5); Alkaline Phosphatase 82 U/L (40-110); Anion Gap 17 mmol/L (10-20); BUN (Urea Nitrogen) 12 mg/dL (9.8-20.1); Bilirubin, Total 1.8 mg/dL (0.3-1.2); Calc. Creatinine Clearance 0 mL/min (70-130); Calcium 9.7 mg/dL (7.8-10.44); Carbon Dioxide 23 mmol/L (23-31); Chloride 105 mmol/L (98-107); Estimated GFR 86; Globulin 3.5 g/dL (2.4-3.5); Glucose 122 mg/dL (80-115); Lipase 30 U/L (8-78); Magnesium 1.7 mg/dL (1.6-2.6); Potassium 4.1 mmol/L (3.5-5.1); Protein, Total 7.6 g/dL (5.8-8.1); Sodium 141 mmol/L (136-145)
[2024-04-22 23:54] LABS: Troponin I 0.161 ng/mL (< 0.028)
[2024-04-23] MEDS ORDERED: Ketorolac Tromethamine 30 MG (1 mL) VIAL IVP PRN (03:10)
[2024-04-23] MEDS ORDERED: Ondansetron PF 4 MG/2 ML Vial IVP PRN (03:10)
[2024-04-23] MEDS ORDERED: Ondansetron ODT 4 MG TAB PO PRN (03:10)
[2024-04-23] MEDS ORDERED: Acetaminophen 325 MG TAB PO PRN (03:10)
[2024-04-23] MEDS ORDERED: traMADol HCl 50 MG TAB PO PRN (03:10)
[2024-04-23] MEDS ORDERED: Insulin Lispro 100 UNIT/ML 10 ML VIAL SC PRN ×2 (03:12)
[2024-04-23] MEDS ORDERED: Dextrose 50% Abboject 50 ML SYRINGE SLOW IVP PRN (03:12)
[2024-04-23] MEDS ORDERED: Glucagon 1 MG/ML KIT IM PRN (03:12)
[2024-04-23] MEDS ORDERED: Dextrose 5% in Water 1,000 ML IV PRN (03:12)
[2024-04-23] MEDS ORDERED: Metoprolol Tartrate 5 MG (5 mL) VIAL IVP PRN (03:13)
[2024-04-23] MEDS ORDERED: Ipratropium/Albuterol 3 ML NEB NEB PRN (03:15)
[2024-04-23 05:11] VITALS: TEMP 98.1
[2024-04-23] MEDS ORDERED: Electrolyte Replacement Protocol 1 EACH FS SCH (07:48)
[2024-04-23] MEDS ORDERED: Famotidine 20 MG TAB ONE (08:44)
[2024-04-23] MEDS ORDERED: Magnesium 2 GM/50 ML BAG (IN WATER) ONE (08:44)
[2024-04-23] MEDS ORDERED: Carvedilol 6.25 MG TAB ONE (08:44)
[2024-04-23] MEDS ORDERED: Enoxaparin 40 MG (0.4 mL) SYRINGE SC SCH (09:00)
[2024-04-23 09:05] LABS: Troponin I 0.281 ng/mL (< 0.028)
[2024-04-23] MEDS: Carvedilol 3.125 MG TAB PO SCH (09:20)
[2024-04-23] MEDS: Magnesium 2 GM/50 ML(in water) 2 GM in Premix 1 BAG IVPB SCH (09:20)
[2024-04-23] MEDS: Famotidine 20 MG TAB PO SCH (09:20)
[2024-04-23 09:21] VITALS: BP 131/70
== END 2024-04-23 11:21 | disposition home or self-care (01) ==
LOC: ERS 22:38 → ERHOLD 04-23 03:13
PROVIDERS: ADMIT Internal Medicine; ATTEND Internal Medicine
DX: I47.19 Other supraventricular tachycardia (principal); J96.01 Acute respiratory failure with hypoxia; I11.0 Hypertensive heart disease with heart failure; I50.33 Acute on chronic diastolic (congestive) heart failure; E11.9 Type 2 diabetes mellitus without complications; J44.9 Chronic obstructive pulmonary disease, unspecified; F17.210 Nicotine dependence, cigarettes, uncomplicated; K21.9 Gastro-esophageal reflux disease without esophagitis; K74.60 Unspecified cirrhosis of liver; K76.0 Fatty (change of) liver, not elsewhere classified; D64.9 Anemia, unspecified; Z88.8 Allergy status to other drugs, medicaments and biological substances; Z79.84 Long term (current) use of oral hypoglycemic drugs; Z79.4 Long term (current) use of insulin; Z79.82 Long term (current) use of aspirin; Z79.899 Other long term (current) drug therapy
CPT/HCPCS: 71045; 71275; 83605; 83690; 83735; 83880; 84484 ×2; 85610; 85730; 93005; 96361; 96374; 99285; G0378; J0153; J3475; Q9967; 36415; 80053; 84443; 85025

== ENCOUNTER 2024-12-01 09:08 | Outpatient (CLI) | payer MEDICARE ==
[2024-12-01 10:59] LABS: #Basophils Less than 0.03 10x3/uL (0.0-0.2); #Eosinophils 0.20 10x3/uL (0.0-0.7); #Monocytes 0.27 10x3/uL (0.11-0.59); #Neutrophils 1.56 10x3/uL (1.40-6.50); %Basophils 0.8 % (0.0-1.0); %Eosinophils 8.3 % (0.0-10.0); %Lymphocytes 14.2 % (21.0-51.0); %Monocytes 11.3 % (0.0-10.0); %Neutrophils 65.0 % (42.0-75.0); Hematocrit 32.4 % (36.0-47.0); Hemoglobin 10.3 g/dL (12.0-16.0); Mean Corpuscular Hemoglobin 28.3 pg (27.0-31.0); Mean Corpuscular Volume 89.0 fL (78.0-98.0); Platelet Count 47 10x3/uL (130-400); Red Blood Cell (RBC) Count 3.64 mill/uL (4.20-5.40); White Blood Cell (WBC) Count 2.40 10x3/uL (4.8-10.8)
[2024-12-01 11:05] LABS: INR-International Normal Ratio 1.1; Prothrombin Time 14.7 sec (12.0-14.7)
[2024-12-01 11:06] LABS: PTT 35.6 sec (22.9-36.1)
[2024-12-01 11:07] LABS: Anion Gap 12 mmol/L (10-20); BUN (Urea Nitrogen) 10 mg/dL (9.8-20.1); Calc. Creatinine Clearance 0 mL/min (70-130); Calcium 9.7 mg/dL (7.8-10.44); Carbon Dioxide 28 mmol/L (23-31); Chloride 104 mmol/L (98-107); Glucose 113 mg/dL (80-115); Potassium 4.2 mmol/L (3.5-5.1); Sodium 140 mmol/L (136-145)
[2024-12-01 11:08] LABS: ALT (SGPT) 45 U/L (Less than 34); AST (SGOT) 38 U/L (11-34); Albumin 4.0 g/dL (3.1-4.5); Alkaline Phosphatase 142 U/L (40-110); Bilirubin, Direct 0.3 mg/dL (0.1-0.3); Bilirubin, Total 0.8 mg/dL (0.3-1.2)
[2024-12-01 11:25] LABS: Anisocytosis SLIGHT = 6-15 cells HPF (0-5); Platelet Adequacy Comment Platelets Decreased; Polychromasia SLIGHT = 2-3 cells HPF (0-2)
== END 2024-12-01 09:09 | disposition home or self-care (01) ==
LOC: LABBT 09:08
PROVIDERS: ATTEND Internal Medicine Cardiovascular Disease
DX: Z01.812 Encounter for preprocedural laboratory examination (principal); I47.10 Supraventricular tachycardia, unspecified
CPT/HCPCS: 80048; 80076; 85025; 85610; 85730

== ENCOUNTER → 2024-12-03 | Day surgery (SDC) | payer MEDICARE ==
[2024-12-01 09:20] VITALS: BMI 22.5
[~2024-12-03] MED LIST changes: +Heparin 10,000 UNITS/ 10 ML VIAL ONE; -Iopamidol-370 76% 500 ML MDV (1 ML CHARGE) ONE; +Isoproterenol 0.2 MG/1 ML AMP ONE
== END ==
LOC: SDC 06:26
PROVIDERS: ATTEND Internal Medicine Cardiovascular Disease
DX: I47.10 Supraventricular tachycardia, unspecified (principal); I10 Essential (primary) hypertension; E11.9 Type 2 diabetes mellitus without complications; I35.0 Nonrheumatic aortic (valve) stenosis; Z79.899 Other long term (current) drug therapy; Z88.8 Allergy status to other drugs, medicaments and biological substances; Z53.8 Procedure and treatment not carried out for other reasons
CPT/HCPCS: J1644

== ENCOUNTER 2024-12-29 08:36 | Outpatient (CLI) | payer MEDICARE ==
[2024-12-29 11:00] LABS: #Basophils Less than 0.03 10x3/uL (0.0-0.2); #Eosinophils 0.20 10x3/uL (0.0-0.7); #Monocytes 0.37 10x3/uL (0.11-0.59); #Neutrophils 2.78 10x3/uL (1.40-6.50); %Basophils 0.5 % (0.0-1.0); %Eosinophils 5.3 % (0.0-10.0); %Lymphocytes 9.6 % (21.0-51.0); %Monocytes 9.9 % (0.0-10.0); %Neutrophils 74.4 % (42.0-75.0); Hematocrit 31.2 % (36.0-47.0); Hemoglobin 10.3 g/dL (12.0-16.0); Mean Corpuscular Hemoglobin 28.9 pg (27.0-31.0); Mean Corpuscular Volume 87.6 fL (78.0-98.0); Platelet Count 136 10x3/uL (130-400); Red Blood Cell (RBC) Count 3.56 mill/uL (4.20-5.40); White Blood Cell (WBC) Count 3.74 10x3/uL (4.8-10.8)
[2024-12-29 11:14] LABS: INR-International Normal Ratio 1.1; PTT 35.8 sec (22.9-36.1); Prothrombin Time 14.6 sec (12.0-14.7)
[2024-12-29 11:17] LABS: Anion Gap 18 mmol/L (10-20); BUN (Urea Nitrogen) 12 mg/dL (9.8-20.1); Calc. Creatinine Clearance 0 mL/min (70-130); Calcium 9.9 mg/dL (7.8-10.44); Carbon Dioxide 26 mmol/L (23-31); Chloride 103 mmol/L (98-107); Glucose 124 mg/dL (80-115); Potassium 3.8 mmol/L (3.5-5.1); Sodium 143 mmol/L (136-145)
== END 2024-12-29 08:37 | disposition home or self-care (01) ==
LOC: LABBT 08:36
PROVIDERS: ATTEND Internal Medicine Cardiovascular Disease
DX: Z01.812 Encounter for preprocedural laboratory examination (principal); I47.10 Supraventricular tachycardia, unspecified
CPT/HCPCS: 80048; 85025; 85610; 85730